=== PATIENT | female | born 1970 | race American Indian/Alaskan Native ===

== ENCOUNTER 2018-05-08 12:23 | Emergency (ER) | payer OTHER ==
[2018-05-08 12:31] VITALS: BP 138/76
--- NOTE | 2018-05-08 13:25 | Emergency Department Report ---
ED Abdominal Pain HPI - General Chief Complaint: Abdominal Pain Stated Complaint: LOWER ABDOMINAL PAIN Time Seen by Provider: 05/08/18 13:08 Source: patient Mode of arrival: Ambulatory Limitations: No Limitations - History of Present Illness Initial Comments: Patient is a 47 years old female with history of uterine fibroids diagnosed one year ago. Patient is being followed by Dr. Jeet Perla. Patient presented to the ER complaining of increasing abdominal pain for the last few month. Pain is mainly suprapubic and cramping in nature. Patient also noticed that she started having more heavy periods. Patient already had a scheduled pelvic ultrasound this coming Saturday and she is following with Dr. Jeet Perla next week. Patient stated that she just wants something to control her pain until she see her doctor. MD Complaint: abdominal pain -: month(s) - Related Data Allergies Allergy/AdvReac Type Severity Reaction Status Date / Time No Known Allergies Allergy Unverified 05/08/18 12:26 ED Review of Systems ROS: Stated complaint: LOWER ABDOMINAL PAIN Other details as noted in HPI Comment: All other systems reviewed and negative Respiratory: denies: cough, shortness of breath, SOB with exertion Cardiovascular: denies: chest pain, palpitations Gastrointestinal: abdominal pain. denies: nausea, vomiting, constipation, hematemesis, hematochezia Genitourinary: abnormal menses. denies: urgency, dysuria, frequency Musculoskeletal: denies: back pain Neurological: denies: headache, weakness, numbness, paresthesias, confusion, abnormal gait ED Past Medical Hx - Past Medical History Previous Medical History?: Yes Hx Psychiatric Treatment: Yes (depression) Additional medical history: uterine fibroids, Cyst on ovary, Vaginal delivery x 1, Genital Herpes - Surgical History Past Surgical History?: Yes Additional Surgical History: Ectopic x 2 - Social History Smoking Status: Never Smoker Substance Use Type: Alcohol, Prescribed ED Physical Exam - General Limitations: No Limitations General appearance: alert, in no apparent distress - Head Head exam: Present: atraumatic, normocephalic, normal inspection - Eye Eye exam: Present: normal appearance - ENT ENT exam: Present: normal exam, normal orophraynx, mucous membranes moist - Respiratory Respiratory exam: Present: normal lung sounds bilaterally. Absent: respiratory distress, wheezes, rales, rhonchi, stridor, accessory muscle use, decreased breath sounds, prolonged expiratory - Cardiovascular Cardiovascular Exam: Present: regular rate, normal rhythm, normal heart sounds - GI/Abdominal GI/Abdominal exam: Present: soft, normal bowel sounds. Absent: distended, tenderness, guarding, rebound, rigid, organomegaly, mass, bruit, pulsatile mass , hernia - Extremities Exam Extremities exam: Present: normal inspection, full ROM, normal capillary refill. Absent: tenderness, pedal edema, joint swelling, calf tenderness - Back Exam Back exam: Present: normal inspection, full ROM. Absent: tenderness, CVA tenderness (R), CVA tenderness (L), muscle spasm, paraspinal tenderness, vertebral tenderness - Neurological Exam Neurological exam: Present: alert, oriented X3, CN II-XII intact, normal gait - Skin Skin exam: Present: warm, intact, normal color ED Course Vital Signs 05/08/18 12:26 Temperature 98.7 F Pulse Rate 108 H Respiratory 20 Rate Blood Pressure 138/76 O2 Sat by Pulse 99 Oximetry Critical care attestation.: If time is entered above; I have spent that time in minutes in the direct care of this critically ill patient, excluding procedure time. ED Disposition Clinical Impression: Abdominal pain, Fibroid Disposition: DC-01 TO HOME OR SELFCARE Is pt being admited?: No Condition: Stable Instructions: Abdominal Pain (ED), Uterine Fibroids (ED) Referrals: PRIMARY CAREMD [Primary Care Provider] - 3-5 Days JEET PERLA MD [Staff Physician] - 3-5 Days
[2018-05-08 13:37] LABS: Bilirubin,Urine NEG (Negative); Blood,Urine NEG (Negative); Color,Urine Yellow (Yellow); Mucus,Urine FEW /HPF; Protein,Urine <15 mg/dL mg/dL (Negative); Urobilinogen,Urine < 2.0 mg/dL (<2.0)
[2018-05-08] MEDS: TORADOL IM ONE (13:43)
== END 2018-05-08 13:43 | disposition home or self-care (01) ==
LOC: ED 12:23
DX: D25.9 Leiomyoma of uterus, unspecified (principal); R10.9 Unspecified abdominal pain; F32.9 Major depressive disorder, single episode, unspecified
CPT/HCPCS: 81001; 96372; 99283; J1885

== ENCOUNTER 2018-06-04 11:04 | Observation (INO) | payer OTHER ==
[2018-06-02 11:00] LABS: Basophils % (Auto) 0.8 % (0.0-1.8); Eosinophils # (Auto) 0.1 K/mm3 (0.0-0.4); Lymphocytes # (Auto) 2.5 K/mm3 (1.2-5.4); Lymphocytes % (Auto) 50.2 % (13.4-35.0); Mean Corpuscular HGB Conc 32 % (30-34); Mean Corpuscular Hemoglobin 26 pg (28-32); Mean Corpuscular Volume 81 fl (79-97); Monocytes # (Auto) 0.4 K/mm3 (0.0-0.8); Monocytes % (Auto) 7.3 % (0.0-7.3); Platelet Count 253 K/mm3 (140-440); Red Blood Count 4.56 M/mm3 (3.65-5.03); Red Cell Distribution Width 14.5 % (13.2-15.2)
--- NOTE | 2018-06-02 11:32 | Anesthesia Consultation ---
Anesthesia Consult and Med Hx Date of service: 06/02/18 (For procedure scheduled 06/04/18) - Airway Anesthetic Teeth Evaluation: Good ROM Head & Neck: Adequate Mental/Hyoid Distance: Adequate Mallampati Class: Class III Intubation Access Assessment: Possibly Difficult - Pulmonary Exam CTA: Yes - Cardiac Exam Cardiac Exam: RRR - Pre-Operative Health Status ASA Pre-Surgery Classification: ASA2 Proposed Anesthetic Plan: General Nerve Block: TAP - Pulmonary Hx Smoking: No Hx Asthma: No Hx Respiratory Symptoms: No SOB: No COPD: No Home Oxygen Therapy: No Hx Pneumonia: No - Cardiovascular System Hx Hypertension: No Hx Coronary Artery Disease: No Hx Heart Attack/AMI: No Hx Angina: No Hx Percutaneous Transluminal Coronary Angioplasty (PTCA): No Hx Cardia Arrhythmia: No Hx Pacemaker: No Hx Internal Defibrillator: No Hx Valvular Heart Disease: No Hx Heart Murmur: No Hx Peripheral Vascular Disease: No - Central Nervous System Hx Neuromuscular Disorder: No Hx Seizures: No CVA: No Hx Psychiatric Problems: Yes (Depression) - Gastrointestinal Hx Ulcer: No Hx Gastroesophageal Reflux Disease: No - Endocrine Hx Renal Disease: No Hx Liver Disease: No Hx Insulin Dependent Diabetes: No Hx Non-Insulin Dependent Diabetes: No Hx Thyroid Disease: No - Other Systems Hx Alcohol Use: Yes (occasional) Hx Substance Use: No Hx Cancer: No Hx Obesity: Yes - Additional Comments Anesthesia Medical History Comments: >4 mets exercise capacity. Takes percocet 5 /325 1x/day for abdominal pain. Discussed preop TAP block. CBC, chem drawn today. T&C to be drawn DOS.
--- NOTE | 2018-06-04 07:43 | History and Physical Report ---
History of Present Illness Date of examination: 06/04/18 Date of admission: 06/04/2018 Chief complaint: symptomatic uterine fibroids History of present illness: 47y/o with symptomatic uterine fibroids. The patient reports heavy painful menses. Pelvic ultrasound demonstrated findings of an enlarged uterus with a dominant myoma measuring 7x7cm. The patient reports worsening in her symptoms and elects to undergo surgical management. Past History Past Medical History: other (uterine fibroids) Past Surgical History: D&C, other (laparoscopy/salpingectomy) Social history: - Obstetrical History : 3 Para: 1 Hx # Term Pregnancies: 0 Number of Pregnancies: 1 Spontaneous Abortions: 2 Induced : 0 Number of Living Children: 1 Medications and Allergies Allergies Allergy/AdvReac Type Severity Reaction Status Date / Time No Known Allergies Allergy Unverified 05/30/18 08:21 Home Medications Medication Instructions Recorded Confirmed Last Taken Type HYDROcodone/APAP 5-325 [[place] 1 each PO Q6HR PRN #14 tablet 05/08/18 05/30/18 Unknown Rx 5/325] Acyclovir [Zovirax] 400 mg PO DAILY 05/30/18 05/30/18 Unknown History traZODone [Desyrel] 100 mg PO QHS 05/30/18 05/30/18 Unknown History Active Meds: Active Medications Bupivacaine HCl (Marcaine 0.5%) 20 ml INFILTRATI PREOP NR Stop: 06/04/18 23:59 Celecoxib (Celebrex) 200 mg PO PREOP KITA Stop: 06/04/18 23:00 Fentanyl (Sublimaze) 100 mcg IV ONCE KITA Stop: 06/04/18 23:32 Gabapentin (Neurontin) 300 mg PO PREOP NR Stop: 06/04/18 23:59 Lactated Ringer's (Lactated Ringers) 1,000 mls @ 75 mls/hr IV DIRECT KITA Lidocaine (Xylocaine 1% 20 Ml) 10 ml INFILTRATI PREOP NR Stop: 06/04/18 23:44 Midazolam HCl (Versed) 2 mg IV PREOP NR Stop: 06/04/18 23:59 Sodium Chloride (Nacl P/F Vial (10 Ml)) 1 ml INFILTRATI PREOP NR Stop: 06/04/18 23:59 Review of Systems All systems: negative Genitourinary: vaginal bleeding, pelvic pain - Vital Signs Vital signs: Vital Signs Temp Pulse Resp BP 98.8 F 88 18 130/88 06/02/18 10:30 06/02/18 10:30 06/02/18 10:30 06/02/18 10:30 Temp Pulse Resp BP Pulse Ox 98.8 F 88 18 130/88 06/02/18 10:30 06/02/18 10:30 06/02/18 10:30 06/02/18 10:30 - Physical Exam Breasts: Positive: deferred Cardiovascular: Regular rate Lungs: Positive: Clear to auscultation Abdomen: Positive: normal appearance Results Result Diagrams: 06/02/18 10:40 All other labs normal. Assessment and Plan - Patient Problems (1) Leiomyoma Status: Acute Plan to address problem: patient is scheduled for a robotic hysterectomy and bilateral salpingectomy (2) Dysmenorrhea Status: Acute (3) Menorrhagia Status: Acute
[~2018-06-04 11:04] MED LIST: ANCEF/STERILE WATER 2 GM/20 ML 2 GM/20 ML SYRINGE IV SCH; LACTATED RINGERS 1,000 ML IV SCH; MARCAINE 0.5% INFILTRATI NR; NACL P/F VIAL (10 ML) INFILTRATI NR; NEURONTIN PO NR; SUBLIMAZE IV SCH; VERSED IV NR; XYLOCAINE 1% 20 mL INFILTRATI NR
[2018-06-04] MEDS ORDERED: MARCAINE 0.5% 30 ML INFILTRATI ONE ×2 (12:37)
[2018-06-04] MEDS ORDERED: DECADRON ONE ×2 (12:37→12:51)
[2018-06-04] MEDS ORDERED: ROBINUL ONE (12:51)
[2018-06-04] MEDS ORDERED: ZOFRAN ONE (12:51)
[2018-06-04] MEDS ORDERED: DILAUDID ONE (12:51)
[2018-06-04] MEDS ORDERED: XYLOCAINE MPF 2% ONE (12:51)
[2018-06-04] MEDS ORDERED: BLOXIVERZ ONE (12:51)
[2018-06-04] MEDS ORDERED: THROMBIN (BOVINE) TP ONE ×2 (12:51→13:38)
[2018-06-04] MEDS ORDERED: ZEMURON IV ONE (12:51)
[2018-06-04] MEDS ORDERED: NEOSPORIN GU IR ONE ×2 (12:51→13:38)
[2018-06-04] MEDS ORDERED: GELFOAM POWDER 1GM MM ONE ×2 (12:51→13:38)
[2018-06-04] MEDS ORDERED: DIPRIVAN 10 MG/ML IV ONE (12:52)
[2018-06-04] MEDS ORDERED: NACL 0.9% IR ONE ×2 (13:38)
[2018-06-04] MEDS ORDERED: NEO SYNEPHRINE/NS Syringe(OR USE) IV ONE (14:38)
[2018-06-04] MEDS ORDERED: NARCAN 0.4 MG/1 ML IV PRN (15:08)
--- NOTE | 2018-06-04 15:08 | Operative Report ---
Operative Report Operative Report: Date of surgery: 06/04/2018 Preoperative diagnoses: Symptomatic uterine fibroids; dysmenorrhea; menorrhagia Postoperative diagnoses: Same as above Procedure: Robotic hysterectomy; bilateral salpingectomy; right ovarian cystectomy; lysis of adhesions Surgeon: Yvonne Castellanos M.D. Canvas Cutter Hand: Laura Coles Anesthesia: Gen. endotracheal anesthesia Estimated blood loss: 50 mL Pathology: Cervix, uterus, bilateral tubes, uterine fibroids Indication: 47-year-old with a history of symptomatic uterine fibroids. The patient has a history of prior ectopic . The patient reports worsening in her menstrual pain and vaginal bleeding. Procedure: The patient was taken to the operating room and given general endotracheal anesthesia without complication. She is prepped and draped in a normal sterile fashion. A bivalve speculum was placed in the patient's vagina and a single- tooth tenaculum placed on the anterior lip of the cervix. The uterus was sounded with the uterine sound. A [place] uterine manipulator was placed in the bivalve speculum was then removed. Attention was then turned to the patient's abdomen where a millimeter supra umbilical skin incision was then made. A Veress needle was placed and peritoneal entry was verified water-filled syringe. Insufflation of the peritoneal cavity was performed with CO2 gas. The 12 mm trocar was then placed under direct visualization. An additional 8 mm trocar was placed on the patient's left and right lateral side just opposite of the supraumbilical trocar. An additional 5 mm right lateral trocar was then placed as the accessory port. The patient was then placed in steep Trendelenburg. The da Johnson robot was then engaged. A fenestrated forcep was placed in arm 2 and a vessel sealer was placed in arm 1. The surgeon then transferred to the surgical console. General survey of the abdomen and pelvis reveal evidence of omental adhesions to the anterior abdominal wall along with small bowel adhesion. The monopolar scissors were used to transect the adhesions to improve visualization into the pelvis. The uterus was noted to be enlarged with multiple uterine fibroids. There was a 2 cm right ovarian cyst. It was noted that the patient had a prior partial salpingectomy. The mesosalpinx was then isolated on the right. The vessel sealer was used to coagulate the mesosalpinx which was then transected. The tube was transected from the ovary. The tubo-ovarian ligament was then coagulated and transected. The round ligament was then coagulated and transected also. The vesicouterine peritoneum was then entered from the patient's right side. The uterine vessels were then coagulated with the vessel sealer. The vessels were then transected . Attention was then turned to the patient's left side where the tubo-ovarian ligament and mesosalpinx were again isolated coagulated and transected. The vesical peritoneum was then entered from the left and joined in the midline. Peritoneum was reflected off of the lower uterine segment. Uterine vessels were then coagulated and then transected. The blood supply to the uterus was adequately contained. A myomectomy was performed with the monopolar scissors in order to decompress the size of the uterus. An incision was made with the monopolar scissors over the serosa and the surrounding connective tissue was transected to remove the fibroids which were placed in the posterior cul-de- sac. The V care ring was visualized. Posterior colpotomy was created with the monopolar scissors. The incision was continued circumferentially until anterior colpotomy was made. The cervix and uterus were amputated from the vaginal cuff. The uterus was then removed along with the fibroids and tubes bilaterally through the vagina and a warm laparotomy sponge was placed and maintain the pneumoperitoneum. The monopolar scissors were used to create a cystotomy in the right ovarian cysts with evacuation of clear fluid. The vaginal cuff was then closed in a running fashion with V lock suture. Irrigation of the pelvis was performed. Gelfoam with thrombin was applied to the incision. The supraumbilical 12 mm trocar site was closed with the Leno Davalos device. The skin was then reapproximated with 4-0 Monocryl. The tissue was sent to pathology which included the cervix and uterus. The patient was then successfully extubated. She was then taken to the recovery room in stable condition. All sponge laps and needle counts were correct x2.
[2018-06-04] MEDS ORDERED: MILK OF MAGNESIA PO PRN (15:09)
[2018-06-04] MEDS ORDERED: ZOFRAN IV PRN (15:09)
[2018-06-04] MEDS ORDERED: TYLENOL PO PRN (15:09)
[2018-06-04] MEDS ORDERED: PERCOCET 5/325 PO PRN (15:09)
[2018-06-04] MEDS ORDERED: AMBIEN PO PRN (15:09)
[2018-06-04] MEDS ORDERED: MOTRIN PO PRN (15:09)
[2018-06-04] MEDS ORDERED: TORADOL ONE (15:40)
[2018-06-04] MEDS: DILAUDID IV PRN ×2 (15:45→15:55)
[2018-06-04] MEDS: TORADOL IV SCH ×2 (15:45→21:02)
[2018-06-04] MEDS ORDERED: LACTATED RINGERS 1,000 ML IV SCH (16:00)
[2018-06-04] MEDS ORDERED: MORPHINE PCA 30MG/30ML IV SCH (16:00)
[2018-06-04] MEDS ORDERED: D5LR 1,000 ML IV ONE (16:25)
[2018-06-04] MEDS: D5LR 1,000 ML IV SCH ×2 (16:59→23:06)
--- NOTE | 2018-06-04 18:29 | Post Anesthesia Evaluation ---
- Post Anesthesia Evaluation Patient Participated: Yes Airway Patent: Yes Stable Respiratory Function: Yes Nausea/Vomiting: No Temp > 96.8F: Yes Pain Manageable: Yes Adequeate Hydration: Yes Anesthesia Complications: Yes Patient on Ventilator: No
[2018-06-05 03:41] LABS: Hematocrit 36.4 % (30.3-42.9); Hemoglobin 11.7 gm/dl (10.1-14.3)
[2018-06-05] MEDS: TORADOL IV SCH ×2 (03:48→09:27)
[2018-06-05] MEDS: D5LR 1,000 ML IV SCH (06:36)
--- NOTE | 2018-06-05 08:45 | Progress Note ---
Assessment and Plan - Patient Problems (1) Leiomyoma Current Visit: No Status: Acute Plan to address problem: patient doing well discharge once she voids (2) Dysmenorrhea Current Visit: No Status: Acute (3) Menorrhagia Current Visit: No Status: Acute Subjective - Subjective Date of service: 06/05/18 Interval history: Patient having some lower abdominal cramping. Denies any vomiting. Patient has not voided yet Patient reports: appetite normal, pain well controlled Objective - Vital Signs Latest vital signs: Vital Signs Temp Pulse Resp BP BP Pulse Ox 06/05/18 07:31 98.4 F 82 20 114/68 95 06/05/18 04:13 98.4 F 74 18 129/73 06/04/18 23:30 98.2 F 80 18 114/67 06/04/18 19:47 97 F L 74 18 126/71 06/04/18 17:18 97.3 F L 70 16 133/75 97 06/04/18 16:30 78 16 126/75 94 06/04/18 16:15 79 17 126/80 94 06/04/18 16:00 65 18 114/60 100 06/04/18 15:40 70 18 119/70 100 06/04/18 15:35 65 17 115/70 100 06/04/18 15:30 69 18 123/60 100 06/04/18 15:25 70 17 113/61 100 06/04/18 15:18 97.2 F L 86 13 111/45 100 06/04/18 12:55 87 16 128/53 100 06/04/18 12:50 84 16 121/57 100 06/04/18 12:45 87 16 118/67 100 06/04/18 12:40 75 16 114/67 100 06/04/18 12:35 88 18 123/63 100 06/04/18 10:25 98.9 F 80 22 110/79 99 Intake and Output 06/04/18 06/05/18 06/05/18 22:59 06:59 14:59 Intake Total 400 2542.083 Output Total 190 2300 Balance 210 242.083 Intake: IV 400 1702.083 D5lr 1,000 ml @ 125 mls/ 1702.083 hr IV DIRECT KITA Rx#: [id number] Intake, Free Water 840 Output: Urine 190 2300 Void 2300 Other: Total, Output Amount 1400 Voiding Method Indwelling Catheter - Exam Abdomen: Present: normal appearance, soft Incision: Present: normal, dry
--- NOTE | 2018-06-05 08:47 | Discharge Summary ---
Providers - Providers Date of Admission: 06/04/18 15:09 Date of discharge: 06/05/18 Attending physician: ISMAEL DUBOIS Primary care physician: LESTER MACDONALD Hospitalization Reason for admission: other (symptomatic uterine fibroids) Procedure: other (robotic hysterectomy ) Discharge diagnosis: other (symptomatic uterine fibroids) Hospital course: Patient underwent a robotic hysterectomy. See operative note for details. Postoperative course unremarkable Condition at discharge: Good Disposition: DC-01 TO HOME OR SELFCARE - Discharge Diagnoses (1) Leiomyoma Status: Acute (2) Dysmenorrhea Status: Acute (3) Menorrhagia Status: Acute Plan - Discharge Medications Prescriptions: Docusate Sodium [Colace] 100 mg PO BID PRN #60 capsule PRN Reason: Constipation Ibuprofen [Motrin] 800 mg PO Q8HR PRN #60 tablet PRN Reason: Pain , Severe (7-10) Oxycodone HCl/Acetaminophen [Percocet 7.5/325 mg] 1 each PO Q6HR PRN #45 tablet PRN Reason: Pain - Provider Discharge Summary Activity: no sex for 6 weeks, no heavy lifting 4 weeks, no strenuous exercise Diet: routine Instructions: routine Additional instructions: [] Smoking cessation referral if applicable(refer to patient education folder for contact #) [] Refer to [facility] Booklet Call your doctor immediately for: * Fever > 100.5 * Heavy vaginal bleeding ( >1 pad per hour) * Severe persistent headache * Shortness of breath * Reddened, hot, painful area to leg or breast * Drainage or odor from incision. * Keep incision clean and dry at all times and follow doctor's instructions regarding bathing/showering Schedule followup with Dr Yang in 3-4 weeks - Follow up plan
[2018-06-05] MEDS ORDERED: PNEUMOVAX 23 IM ONE (12:00)
[2018-06-05 12:29] VITALS: BP 92/41
== END 2018-06-05 13:15 | disposition home or self-care (01) ==
LOC: OR 11:04 → OB 15:09
PROVIDERS: ADMIT Obstetrics & Gynecology; ATTEND Obstetrics & Gynecology
DX: D25.9 Leiomyoma of uterus, unspecified (principal); N94.6 Dysmenorrhea, unspecified; N92.0 Excessive and frequent menstruation with regular cycle; F32.9 Major depressive disorder, single episode, unspecified; E66.9 Obesity, unspecified; Z68.37 Body mass index [BMI] 37.0-37.9, adult; Z72.89 Other problems related to lifestyle
CPT/HCPCS: 36415; 58554; 58662; 64450; 84703; 85014; 85018; 85025; 86850; 86900; 86901; 88307; 96374; 96375; 96376; A4217; A4649; G0378; J0690; J1100; J1170; J1885; J2250; J2270; J2370; J2405; J2704; J2710; J3010; J7120; J7121; S2900; 90732

== ENCOUNTER 2018-06-10 16:15 | Inpatient (IN) | payer OTHER ==
--- NOTE | 2018-06-10 16:18 | History and Physical Report ---
History of Present Illness Date of examination: 06/10/18 Date of admission: 06/10/18 16:15 Chief complaint: abdominal pain History of present illness: 47y/o s/p robotic hysterectomy . The patient had a routine postoperative course. She represented to the office with the complaint of a low grade fever 2 days ago. She reports having a small bowel movement yesterday. The patient has experienced worsening abdominal pain today. She denies any nausea. Past History Past Medical History: no pertinent history Past Surgical History: D&C, other (robotic hysterectomy) Social history: - Obstetrical History : 3 Para: 1 Hx # Term Pregnancies: 0 Number of Pregnancies: 1 Spontaneous Abortions: 2 Induced : 0 Number of Living Children: 1 Medications and Allergies Allergies Allergy/AdvReac Type Severity Reaction Status Date / Time No Known Allergies Allergy Unverified 05/30/18 08:21 Home Medications Medication Instructions Recorded Confirmed Last Taken Type HYDROcodone/APAP 5-325 [[place] 1 each PO Q6HR PRN #14 tablet 05/08/18 05/30/18 Unknown Rx 5/325] Acyclovir [Zovirax] 400 mg PO DAILY 05/30/18 05/30/18 06/03/18 History traZODone [Desyrel] 100 mg PO QHS 05/30/18 05/30/18 06/03/18 History Docusate Sodium [Colace] 100 mg PO BID PRN #60 capsule 06/05/18 Unknown Rx Ibuprofen [Motrin] 800 mg PO Q8HR PRN #60 tablet 06/05/18 Unknown Rx Oxycodone HCl/Acetaminophen 1 each PO Q6HR PRN #45 tablet 06/05/18 Unknown Rx [Percocet 7.5/325 mg] Review of Systems All systems: negative Constitutional: fatigue Gastrointestinal: abdominal pain, loss of appetite, excessive gas - Physical Exam Breasts: Positive: deferred Cardiovascular: Regular rate Abdomen: Positive: tenderness, other (distension and hypoactive bowel sounds) Results Result Diagrams: 06/11/18 03:32 06/10/18 18:45 All other labs normal. Assessment and Plan - Patient Problems (1) Abdominal pain Current Visit: Yes Status: Acute Plan to address problem: patient admitted for imaging and pain management will initiate IV antibiotics
[2018-06-10] MEDS ORDERED: NARCAN 0.4 MG/1 ML IV PRN (16:39)
[2018-06-10] MEDS ORDERED: ZOFRAN IV PRN ×2 (16:39)
[2018-06-10] MEDS: TORADOL IV SCH ×2 (17:55→23:50)
[2018-06-10] MEDS: TYLENOL PO PRN (18:10)
[2018-06-10] MEDS: D5LR 1,000 ML IV SCH (18:17)
[2018-06-10] MEDS: MORPHINE PCA 30MG/30ML IV SCH ×2 (19:29→19:30)
[2018-06-10 20:18] LABS: Albumin 3.2 g/dL (3.9-5); Calcium 8.7 mg/dL (8.4-10.2)
--- NOTE | 2018-06-10 21:55 | Cat Scan Report ---
FINAL REPORT PROCEDURE: CT ABDOMEN PELVIS WO/W CON TECHNIQUE: Computerized axial tomography of the abdomen and pelvis was performed without contrast followed by computerized axial tomography of the abdomen and pelvis after the IV injection of iodinated nonionic contrast. HISTORY: abdominal pain COMPARISON: No prior studies are available for comparison. FINDINGS: Liver, spleen, pancreas and adrenal glands are within normal limits. An irregular fluid collection is noted in the cul-de-sac measuring 6.5 x 6.6 centimeters which is extending superiorly into bilateral lower quadrants along the retroperitoneal plane containing air-fluid levels. There are also loculated fluid collections along bilateral paracolic gutters. On the right side it is extending into right subhepatic region. Bilateral kidneys demonstrate normal enhancement. 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 The ureters are mildly dilated on the left most likely secondary to extrinsic compression by the fluid collection. A simple cyst measuring 1.2 centimeters is noted in the right kidney. An air-fluid level is noted in the urinary bladder most likely secondary to any recent intervention or cystitis. Gallbladder is unremarkable. Small bowel loops are within normal limits. Small pockets of free air are noted in the subhepatic and left upper quadrant regions. Appendix is partially visualized and appears unremarkable.. IMPRESSION: Multiple fluid collections in the cul-de-sac, bilateral lower quadrants, bilateral paracolic gutters and right sub patent region. Mild degree free air. Findings are suspicious for etiologies such as diverticulitis with perforation. Clinical correlation is recommended
[2018-06-10] MEDS: MYLICON PO PRN (22:00)
[2018-06-10] MEDS: UNASYN/NS 3 GM/100 ML 3 GM/100 ML BAG IV SCH (23:08)
[2018-06-10 23:45] LABS: Bacteria,Urine 1+ /HPF (Negative); Bilirubin,Urine NEG (Negative); Blood,Urine NEG (Negative); Color,Urine Amber (Yellow); Mucus,Urine 2+ /HPF
[2018-06-11] MEDS: TORADOL IV SCH ×2 (06:05→12:30)
[2018-06-11] MEDS: MYLICON PO PRN (06:05)
[2018-06-11] MEDS: UNASYN/NS 3 GM/100 ML 3 GM/100 ML BAG IV SCH ×3 (06:05→18:52)
[2018-06-11 06:38] LABS: Basophils % (Auto) 0.1 % (0.0-1.8); Eosinophils # (Auto) 0.1 K/mm3 (0.0-0.4); Eosinophils % (Auto) 0.4 % (0.0-4.3); Hematocrit 32.7 % (30.3-42.9); Hemoglobin 10.8 gm/dl (10.1-14.3); Lymphocytes # (Auto) 1.2 K/mm3 (1.2-5.4); Lymphocytes % (Auto) 8.3 % (13.4-35.0); Mean Corpuscular HGB Conc 33 % (30-34); Mean Corpuscular Hemoglobin 26 pg (28-32); Mean Corpuscular Volume 80 fl (79-97); Monocytes # (Auto) 0.7 K/mm3 (0.0-0.8); Monocytes % (Auto) 4.6 % (0.0-7.3); Platelet Count 242 K/mm3 (140-440); Red Blood Count 4.09 M/mm3 (3.65-5.03); Red Cell Distribution Width 14.7 % (13.2-15.2)
--- NOTE | 2018-06-11 09:12 | Progress Note ---
Assessment and Plan - Patient Problems (1) Abdominal pain Current Visit: Yes Status: Acute Plan to address problem: continue supportive measures suspect postoperative ileus consult IR for drainage Subjective - Subjective Date of service: 06/11/18 Interval history: The patient reports slight improvement in abdominal pain. She denies and vomiting today. Has not had flatus today. CT scan indicates 6cm fluid collection in cul-de-sac. Patient receiving IV unasyn. Will continue NPO status until flatus resumes. Will have interventional radiology review CT results for possible percutaneous drainage of collection. Patient reports: other (pain is better controlled), no appetite normal, no flatus Objective - Vital Signs Latest vital signs: Vital Signs Temp Pulse Pulse Resp BP Pulse Ox 06/11/18 04:15 99.0 F 105 H 20 91/54 06/11/18 02:00 18 06/11/18 00:00 98.4 F 103 H 20 100/60 96 06/10/18 22:00 18 06/10/18 20:15 98.4 F 100 H 20 126/63 98 06/10/18 20:00 18 06/10/18 18:35 100.0 F H 108 H 108 H 20 115/47 98 Intake and Output 06/10/18 06/11/18 06/11/18 22:59 06:59 14:59 Intake Total 100 Output Total 450 300 Balance -450 -200 Intake: IV 100 UNASYN/NS 3 GM/100 ML 3 100 gm In 100 ml @ 200 mls/hr IV Q6HR [facility] Rx#: [id number] Output: Urine 450 300 Void 450 300 Other: Total, Output Amount 450 300 Voiding Method Toilet # Voids Void 1 1 Weight 79.832 kg 81 kg - Exam Abdomen: Present: distention, abnormal bowel sounds Incision: Present: normal, dry - Labs Labs: Abnormal lab results 06/10/18 06/10/18 06/11/18 Range/Units 18:45 Unknown 03:32 WBC 14.3 H (4.5-11.0) K/mm3 MCH 26 L (28-32) pg Lymph % (Auto) 8.3 L (13.4-35.0) % Seg Neutrophils % 86.6 H (40.0-70.0) % Seg Neutrophils # 12.4 H (1.8-7.7) K/mm3 Chloride 97.3 L (98-107) mmol/L Creatinine 1.4 H (0.7-1.2) mg/dL Glucose 149 H (65-100) mg/dL Albumin 3.2 L (3.9-5) g/dL Ur Specific [place] 1.051 H (1.003-1.030) Urine WBC (Auto) 16.0 H (0.0-6.0) /HPF
[2018-06-11] MEDS ORDERED: VERSED IV NR ×2 (10:00)
[2018-06-11] MEDS ORDERED: SUBLIMAZE IV NR ×2 (10:00)
[2018-06-11] MEDS ORDERED: VERSED IV ONE (10:17)
[2018-06-11] MEDS ORDERED: SUBLIMAZE ONE (10:18)
[2018-06-11] MEDS ORDERED: XYLOCAINE 2% INFILTRATI ONE (10:39)
[2018-06-11] MEDS: MORPHINE PCA 30MG/30ML IV SCH (12:53)
--- NOTE | 2018-06-11 13:43 | Cat Scan Report ---
Exam: CT-guided placement of drainage catheter Clinical indication: Patient with history of hysterectomy who presents with interabdominal fluid collections and abdominal pain Date: 06/11/2018 Procedure: Following an examination of the risks, benefits and alternatives; written informed consent was obtained. Patient was brought to the CT suite and placed in supine position on the gantry. Initial rural sociologist images of the abdomen was performed and an appropriate access site chosen to largest fluid collection in the pelvis just posterior to the bladder. The patient's left lower quadrant was prepped and draped in usual sterile fashion. 1% lidocaine was used for anesthesia. Using intermittent CT guidance, a 15 cm 18-gauge trocar needle was advanced into the fluid. There was prompt return of purulent serous fluid. A 0.035 guidewire was then advanced through the needle and the needle removed. Following serial dilation over the guidewire under fluoroscopy, an 8 Macedonian pigtail drainage catheter was placed over the guidewire under fluoroscopy and a pigtail advanced into the central aspect of the fluid collection. Guidewire was removed. A total of 150 mL's of serous purulent fluid was aspirated. Samples sent for laboratory analysis. Post aspiration imaging demonstrated collapse of the fluid collection. The catheter was secured to the skin surface using 0 silk suture and a StatLock device. The catheter was then placed to CONOR bulb drainage. A sterile dressing was then applied. The patient tolerated the procedure well. There were no immediate post procedure complications. Conscious sedation was performed of the guidance of radiologic nursing. Continuous cardiopulmonary monitoring was utilized. Impression: 1) CT-guided placement of 8 Macedonian drainage catheter into a pelvic fluid collection with 150 mL's of serous purulent fluid aspirated. Samples were sent for laboratory analysis.
[2018-06-11] MEDS ORDERED: GARAMYCIN 400 MG in NACL 0.9% 100 ML IV SCH (18:45)
[2018-06-11] MEDS ORDERED: GARAMYCIN 240 MG in NACL 0.9% 100 ML IV SCH (18:45)
--- NOTE | 2018-06-11 18:55 | Progress Note ---
Assessment and Plan - Patient Problems (1) Abdominal pain Current Visit: Yes Status: Acute (2) Abscess Current Visit: Yes Status: Acute Plan to address problem: will add clindamycin and gentamicin to antibiotic regimen blood cultures being sent suspect possible sepsis continue aggressive supportive care diet advanced to clears (3) Tachycardia Current Visit: Yes Status: Acute Subjective - Subjective Date of service: 06/11/18 Interval history: The patient underwent percutaneous drainage of 6.6cm fluid collection in the [place]. Speaking with the radiologist who performed the procedure, the fluid was purulent with a foul odor. The patient is now experiencing tachycardia. She reports +flatus and continues to void urine voluntarily. The patient remains afebrile. Cultures of the fluid are pending. Patient reports: voiding normally, flatus Objective - Vital Signs Latest vital signs: Vital Signs Temp Pulse Pulse Resp Resp BP BP 06/11/18 17:45 99.5 F 132 H 18 108/65 06/11/18 13:43 98.5 F 132 H 18 95/59 06/11/18 11:16 114 H 28 H 105/45 06/11/18 10:57 112 H 28 H 101/50 06/11/18 10:53 113 H 36 H 93/54 06/11/18 10:48 114 H 29 H 99/46 06/11/18 10:25 118 H 20 101/56 06/11/18 08:56 97.7 F 105 H 18 83/47 06/11/18 04:15 99.0 F 105 H 20 91/54 06/11/18 02:00 18 06/11/18 00:00 98.4 F 103 H 20 100/60 06/10/18 22:00 18 06/10/18 20:15 98.4 F 100 H 20 126/63 06/10/18 20:00 18 Pulse Ox Pulse Ox 06/11/18 17:45 06/11/18 13:43 06/11/18 11:16 99 06/11/18 10:57 99 06/11/18 10:53 97 06/11/18 10:48 99 06/11/18 10:25 95 06/11/18 08:56 06/11/18 04:15 06/11/18 02:00 06/11/18 00:00 96 06/10/18 22:00 06/10/18 20:15 98 06/10/18 20:00 Intake and Output 06/11/18 06/11/18 06/11/18 06:59 14:59 22:59 Intake Total 200 360 320 Output Total 300 300 Balance -100 360 20 Intake: IV 200 UNASYN/NS 3 GM/100 ML 3 200 gm In 100 ml @ 200 mls/hr IV Q6HR [facility] Rx#: [id number] Oral 360 320 Output: Urine 300 300 Void 300 300 Other: Total, Intake Amount 360 320 Total, Output Amount 300 300 # Voids Void 1 1 1 Weight 81 kg - Labs Labs: Abnormal lab results 06/10/18 06/10/18 06/11/18 Range/Units 18:45 Unknown 03:32 WBC 14.3 H (4.5-11.0) K/mm3 MCH 26 L (28-32) pg Lymph % (Auto) 8.3 L (13.4-35.0) % Seg Neutrophils % 86.6 H (40.0-70.0) % Seg Neutrophils # 12.4 H (1.8-7.7) K/mm3 Chloride 97.3 L (98-107) mmol/L Creatinine 1.4 H (0.7-1.2) mg/dL Glucose 149 H (65-100) mg/dL Albumin 3.2 L (3.9-5) g/dL Ur Specific Mathews 1.051 H (1.003-1.030) Urine WBC (Auto) 16.0 H (0.0-6.0) /HPF
[2018-06-11] MEDS ORDERED: GARAMYCIN 300 MG in NACL 0.9% 100 ML IV SCH (21:00)
[2018-06-11] MEDS: TYLENOL PO PRN (22:00)
[2018-06-11] MEDS: CLEOCIN 600 MG/50 mL 600 MG/50 ML BAG IV SCH (22:08)
[2018-06-12] MEDS: UNASYN/NS 3 GM/100 ML 3 GM/100 ML BAG IV SCH ×6 (00:21→23:45)
[2018-06-12] MEDS: D5LR 1,000 ML IV SCH ×3 (00:28→23:54)
[2018-06-12] MEDS: CLEOCIN 600 MG/50 mL 600 MG/50 ML BAG IV SCH ×3 (05:56→22:53)
[2018-06-12 06:17] LABS: Basophils % (Auto) 0.1 % (0.0-1.8); Eosinophils # (Auto) 0.1 K/mm3 (0.0-0.4); Eosinophils % (Auto) 0.3 % (0.0-4.3); Hemoglobin 10.4 gm/dl (10.1-14.3); Lymphocytes # (Auto) 1.4 K/mm3 (1.2-5.4); Lymphocytes % (Auto) 8.7 % (13.4-35.0); Mean Corpuscular HGB Conc 33 % (30-34); Mean Corpuscular Hemoglobin 26 pg (28-32); Mean Corpuscular Volume 81 fl (79-97); Monocytes # (Auto) 0.6 K/mm3 (0.0-0.8); Monocytes % (Auto) 3.9 % (0.0-7.3); Platelet Count 241 K/mm3 (140-440); Red Blood Count 3.97 M/mm3 (3.65-5.03); Red Cell Distribution Width 14.4 % (13.2-15.2)
[2018-06-12 06:34] LABS: BUN/Creatinine Ratio 13; Blood Urea Nitrogen 12 mg/dL (7-17); Calcium 8.2 mg/dL (8.4-10.2); Hemolysis Index 15
[2018-06-12] MEDS: MORPHINE PCA 30MG/30ML IV SCH (07:25)
--- NOTE | 2018-06-12 08:44 | Progress Note ---
Assessment and Plan - Patient Problems (1) Abdominal pain Current Visit: Yes Status: Acute Plan to address problem: continue current care with antibiotics improvement in creatinine therefore gentamicin dosing changed to q24hr dosing encourage ambulation (2) Abscess Current Visit: Yes Status: Acute (3) Tachycardia Current Visit: Yes Status: Acute Subjective - Subjective Date of service: 06/12/18 Interval history: Patient states she is not feeling better today. Had some temp spikes yesterday. Tachycardia is improving. Slight increase in leukocytosis. She denies any nausea or vomiting. Patient made aware that pelvic fluid drained was infected. Antibiotic regimen extended. Cultures pending. +flatus. Diet advanced to regular Patient reports: voiding normally, flatus, no appetite normal, no pain well controlled Objective - Vital Signs Latest vital signs: Vital Signs Temp Pulse Pulse Resp Resp BP BP 06/12/18 04:20 99.2 F 120 H 18 98/55 06/12/18 00:00 98.8 F 128 H 18 108/48 06/11/18 22:00 18 06/11/18 20:00 101.9 F H 133 H 18 108/65 06/11/18 17:45 99.5 F 132 H 18 108/65 06/11/18 13:43 98.5 F 132 H 18 95/59 06/11/18 11:16 114 H 28 H 105/45 06/11/18 10:57 112 H 28 H 101/50 06/11/18 10:53 113 H 36 H 93/54 06/11/18 10:48 114 H 29 H 99/46 06/11/18 10:25 118 H 20 101/56 06/11/18 08:56 97.7 F 105 H 18 83/47 Pulse Ox 06/12/18 04:20 06/12/18 00:00 06/11/18 22:00 06/11/18 20:00 06/11/18 17:45 06/11/18 13:43 06/11/18 11:16 99 06/11/18 10:57 99 06/11/18 10:53 97 06/11/18 10:48 99 06/11/18 10:25 95 06/11/18 08:56 Intake and Output 06/11/18 06/12/18 06/12/18 22:59 06:59 14:59 Intake Total 470 340 Output Total 300 244 Balance 170 96 Intake: IV 150 100 CLEOCIN 600 MG/50 mL 600 50 mg In 50 ml @ 100 mls/hr IV Q8HR [facility] Rx#:[id number] UNASYN/NS 3 GM/100 ML 3 100 100 gm In 100 ml @ 200 mls/hr IV Q6HR [facility] Rx#: [id number] Oral 320 240 Output: Drainage 44 Abdomen 44 Urine 300 200 Void 300 200 Other: Total, Intake Amount 320 240 Total, Output Amount 300 22 # Voids Void 1 - Exam Abdomen: Present: soft, distention (mild), normal bowel sounds - Labs Labs: Abnormal lab results 06/12/18 06/12/18 Range/Units 05:19 05:19 WBC 16.1 H (4.5-11.0) K/mm3 MCH 26 L (28-32) pg Lymph % (Auto) 8.7 L (13.4-35.0) % Seg Neutrophils % 87.0 H (40.0-70.0) % Seg Neutrophils # 14.0 H (1.8-7.7) K/mm3 Calcium 8.2 L (8.4-10.2) mg/dL
[2018-06-12] MEDS: TYLENOL PO PRN (11:05)
[2018-06-12] MEDS: TORADOL IV SCH ×6 (11:48→23:02)
[2018-06-12] MEDS ORDERED: GARAMYCIN 300 MG in NACL 0.9% 100 ML IV SCH (22:00)
[2018-06-12] MEDS: AMBIEN PO PRN (23:11)
[2018-06-13] MEDS: MYLICON PO PRN ×2 (00:46→20:58)
[2018-06-13] MEDS: CLEOCIN 600 MG/50 mL 600 MG/50 ML BAG IV SCH ×3 (05:32→22:38)
[2018-06-13] MEDS: UNASYN/NS 3 GM/100 ML 3 GM/100 ML BAG IV SCH ×2 (05:32→11:55)
[2018-06-13] MEDS: TORADOL IV SCH ×4 (05:33→22:37)
[2018-06-13] MEDS: TYLENOL PO PRN (05:51)
[2018-06-13 08:50] LABS: Hematocrit 30.6 % (30.3-42.9); Hemoglobin 10.1 gm/dl (10.1-14.3); Mean Corpuscular HGB Conc 33 % (30-34); Mean Corpuscular Hemoglobin 26 pg (28-32); Mean Corpuscular Volume 79 fl (79-97); Platelet Count 245 K/mm3 (140-440); Red Blood Count 3.85 M/mm3 (3.65-5.03); Red Cell Distribution Width 14.6 % (13.2-15.2)
--- NOTE | 2018-06-13 13:20 | Progress Note ---
Assessment and Plan A/P continue abx cultures from surgical grew out E.coli Subjective - Subjective Date of service: 06/13/18 Patient reports: appetite normal, voiding normally, pain well controlled Objective - Vital Signs Latest vital signs: Vital Signs Temp Pulse Resp BP BP Pulse Ox 06/13/18 07:31 98.8 F 117 H 20 109/67 95 06/13/18 04:10 100.5 F H 131 H 18 109/70 06/13/18 00:00 99.0 F 127 H 18 95/57 06/12/18 20:05 99.3 F 120 H 18 100/63 06/12/18 15:56 97.9 F 18 86/55 06/12/18 15:55 123 H 94 Intake and Output 06/12/18 06/13/18 06/13/18 23:59 07:59 15:59 Intake Total 1667.5 1597.5 360 Output Total 420 Balance 1247.5 1597.5 360 Intake: IV 1307.5 1357.5 CLEOCIN 600 MG/50 mL 600 100 50 mg In 50 ml @ 100 mls/hr IV Q8HR [facility] Rx#:[id number] D5lr 1,000 ml @ 150 mls/ 1000 1000 hr IV DIRECT [facility] Rx#: [id number] Garamycin 300 mg In NaCl 107.5 0.9% 100 ml @ 107.5 mls/ hr IV Q24HR@2200 [facility] Rx#: [id number] Garamycin 300 mg In NaCl 107.5 0.9% 100 ml @ 107.5 mls/ hr IV Q36H [facility] Rx#: [id number] UNASYN/NS 3 GM/100 ML 3 100 200 gm In 100 ml @ 200 mls/hr IV Q6HR [facility] Rx#: [id number] Oral 360 240 240 Intake, Free Water 120 Output: Drainage 20 Abdomen 20 Urine 400 Void 400 Other: Total, Intake Amount 360 240 240 Total, Output Amount 420 Voiding Method Toilet # Voids 1 Void 2 1 - Exam Breasts: Present: normal Cardiovascular: Present: Regular rate, Normal S1 Lungs: Present: Clear to auscultation, Normal air movement Abdomen: Present: normal appearance, soft, normal bowel sounds. Absent: distention, tenderness, guarding Vulva: both: normal Extremities: Present: normal Deep Tendon Reflex Grade: Normal +2 Incision: Present: normal, dry, intact - Labs Labs: Abnormal lab results 06/13/18 Range/Units 07:47 WBC 13.3 H (4.5-11.0) K/mm3 MCH 26 L (28-32) pg
--- NOTE | 2018-06-13 14:09 | Event Note ---
Date: 06/13/18 Called and noted Ecoli + and needs to be transferred to contact floor . added sy. ID consulted and agree with plan
[2018-06-13] MEDS: D5LR 1,000 ML IV SCH ×2 (18:38→22:38)
[2018-06-13] MEDS: MERREM/NS 500 MG/50 ML 500 MG/50 ML BAG IV SCH ×3 (18:54→22:46)
[2018-06-13] MEDS: PERCOCET 5/325 PO PRN (20:58)
[2018-06-13] MEDS: AMBIEN PO PRN (22:37)
[2018-06-14] MEDS: MERREM/NS 500 MG/50 ML 500 MG/50 ML BAG IV SCH ×6 (00:07→23:55)
[2018-06-14] MEDS: TORADOL IV SCH ×5 (05:12→22:06)
[2018-06-14] MEDS: CLEOCIN 600 MG/50 mL 600 MG/50 ML BAG IV SCH ×3 (05:12→22:07)
[2018-06-14] MEDS: PERCOCET 5/325 PO PRN ×2 (06:23→18:01)
[2018-06-14] MEDS ORDERED: MILK OF MAGNESIA PO PRN (10:09)
--- NOTE | 2018-06-14 10:11 | Progress Note ---
Assessment and Plan - Patient Problems (1) Abdominal pain Current Visit: Yes Status: Acute Plan to address problem: will implement use of milk of magnesium will repeat CT scan and add oral contrast if patient does not demonstrate improvement with new antibiotic regimen (2) Abscess Current Visit: Yes Status: Acute (3) Tachycardia Current Visit: Yes Status: Acute Subjective - Subjective Date of service: 06/14/18 Interval history: Patient has not demonstrated any significant clinical improvement. Antibiotics changed yesterday to imipenen for E coli and enterococcus found on abdominal aspirate. Blood cultures are negative. Patient denies a bowel movement since Saturday but reports flatus. She is not experiencing any nausea or vomiting. Has been able to void. CONOR drainage is more serous today. Patient states she generally has 2 bowel movements a week. Slight improvement in leukocytosis Patient reports: flatus, pain poorly controlled, no appetite normal, no bowel movement Objective - Vital Signs Latest vital signs: Vital Signs Temp Pulse Resp Resp BP BP Pulse Ox 06/14/18 06:23 18 06/14/18 05:42 20 06/14/18 05:24 100.9 F H 115 H 20 139/67 93 06/14/18 05:12 20 06/14/18 00:09 98.2 F 103 H 18 144/113 92 06/13/18 23:23 103 H 92 06/13/18 23:07 18 06/13/18 22:37 18 06/13/18 22:27 94 06/13/18 21:58 20 06/13/18 21:20 20 96 06/13/18 21:01 20 06/13/18 20:58 20 06/13/18 19:00 20 06/13/18 18:08 100.0 F H 119 H 20 106/71 94 06/13/18 15:40 98.4 F 95 H 22 114/80 95 Intake and Output 06/13/18 06/14/18 06/14/18 22:59 06:59 14:59 Intake Total 700 460 Output Total 215 410 Balance 485 50 Intake: IV 700 100 CLEOCIN 600 MG/50 mL 600 50 50 mg In 50 ml @ 100 mls/hr IV Q8HR [facility] Rx#:[id number] D5lr 1,000 ml @ 150 mls/ 600 hr IV DIRECT [facility] Rx#: [id number] MERREM/NS 500 MG/50 ML 50 50 500 mg In 50 ml @ 50 mls/ hr IV Q6HR [facility] Rx#: [id number] Oral 0 360 Output: Drainage 15 10 Abdomen 15 10 Urine 200 400 Void 200 400 Other: Total, Intake Amount 0 360 Total, Output Amount 215 410 Voiding Method Toilet Weight 95.8 kg - Exam Abdomen: Present: soft, distention, tenderness Incision: Present: normal
[2018-06-14] MEDS: AMBIEN PO PRN (22:06)
[2018-06-14] MEDS: TYLENOL PO PRN (22:06)
[2018-06-14] MEDS: D5LR 1,000 ML IV SCH (22:07)
[2018-06-15] MEDS: MERREM/NS 500 MG/50 ML 500 MG/50 ML BAG IV SCH ×4 (06:20→23:34)
[2018-06-15] MEDS: TORADOL IV SCH ×2 (06:21→10:51)
[2018-06-15] MEDS: CLEOCIN 600 MG/50 mL 600 MG/50 ML BAG IV SCH ×2 (06:22→14:41)
[2018-06-15] MEDS: PERCOCET 5/325 PO PRN ×2 (11:34→21:27)
[2018-06-15] MEDS: MORPHINE IV PRN ×2 (14:40→19:18)
--- NOTE | 2018-06-15 14:49 | Progress Note ---
Assessment and Plan - Patient Problems (1) Abdominal pain Current Visit: Yes Status: Acute Plan to address problem: patient is currently drinking oral contrast will proceed with CT scan once she completes contrast (2) Abscess Current Visit: Yes Status: Acute (3) Tachycardia Current Visit: Yes Status: Acute Subjective - Subjective Date of service: 06/15/18 Interval history: Patient is not demonstrating subjectively having improvement. Febrile episodes have decreased but the patient continues to complain of right sided abdominal pain. She had a bowel movement yesterday but today the BM was watery. Still is receiving triple antibiotic therapy. Will proceed with oral contrast and CT scan of abdomen and pelvis. Will consult surgery pending results of CT scan. Patient reports: flatus, pain poorly controlled, no appetite normal Objective - Vital Signs Latest vital signs: Vital Signs Temp Pulse Resp BP BP Pulse Ox 06/15/18 13:22 99.2 F 20 122/65 06/15/18 10:00 95 06/15/18 05:20 98.9 F 107 H 20 114/68 94 06/14/18 22:00 98.3 F 99 H 16 144/76 97 06/14/18 21:05 95 06/14/18 17:14 98.2 F 116 H 20 111/65 97 Intake and Output 06/14/18 06/15/18 06/15/18 22:59 06:59 14:59 Intake Total 150 1450 50 Output Total 10 510 Balance 140 940 50 Intake: IV 150 100 50 CLEOCIN 600 MG/50 mL 600 100 50 mg In 50 ml @ 100 mls/hr IV Q8HR [facility] Rx#:[id number] MERREM/NS 500 MG/50 ML 50 50 50 500 mg In 50 ml @ 50 mls/ hr IV Q6HR [facility] Rx#: [id number] Oral 1350 Output: Drainage 10 10 Abdomen 10 10 Urine 500 Void 500 Other: Total, Intake Amount 500 Total, Output Amount 510 Voiding Method Toilet Toilet # Voids Void 1 - Exam Abdomen: Present: soft, distention, tenderness
--- NOTE | 2018-06-15 15:44 | Event Note ---
Date: 06/15/18 Received consultation for sepsis from post hysterectomy pelvic abscess. IR drainage cx + ESBL E coli and Entercoccus durans. Patient on merepenen and clindamycin. Will stop clindamycin in light of no need for double anaerobic coverage. Will add vanco to cover Enterococcus until MICs available. Pt to be seen in the morning. Agree w repeat CT.
[2018-06-15 15:58] LABS: Hematocrit 31.5 % (30.3-42.9); Mean Corpuscular HGB Conc 32 % (30-34); Mean Corpuscular Volume 79 fl (79-97); Platelet Count 359 K/mm3 (140-440); Red Blood Count 3.97 M/mm3 (3.65-5.03); Red Cell Distribution Width 14.8 % (13.2-15.2)
[2018-06-15] MEDS ORDERED: VANCOMYCIN VIAL 1,000 MG in NACL 0.9% 100 ML IV SCH (16:00)
[2018-06-15 16:20] LABS: Mean Corpuscular Hemoglobin 25 pg (28-32)
[2018-06-15 17:03] LABS: Band Neutrophils # (Manual) 0.9 K/mm3; Basophils % (Manual) 0 % (0.0-1.8); Hypochromasia 2+; Ovalocytes Few; Total Cells Counted 100
[2018-06-15 17:04] LABS: Anisocytosis 1+; Poikilocytosis 1+
[2018-06-15 17:06] LABS: Large Platelets Few; Platelet Estimate Consistent w Auto
--- NOTE | 2018-06-15 17:54 | Cat Scan Report ---
FINAL REPORT EXAM: CT ABDOMEN PELVIS W CON HISTORY: abd pain recent vaginal hysterectomy with intra-abdominal abscesses. TECHNIQUE: Axial images were performed from the lung bases to the pubic symphysis following IV contrast administration. Total exam DLP 3231.45 mGy-cm Multiplanar reformats are performed on the acquisition scanner. Previous CT performed 06/10/2018 reported 6.5 x 6.6 centimeter cul-de-sac irregular fluid collection extending into the bilateral lower quadrant along the retroperitoneal planes containing air-fluid levels in loculated fluid collections in the bilateral pericolic gutters extending into the right sub a patent region, recent vaginal hysterectomy FINDINGS: Developing moderate right and small left pleural effusions with subjacent consolidation. Calcified granulomata in the bilateral infrahilar regions. Heart size is within normal limits. Normal enhancement and appearance of the liver, spleen, pancreas, bilateral adrenal glands and bilateral kidneys. Gallbladder is moderately distended and demonstrates heterogeneous density. There has been interval placement of a suprapubic tube into the pelvic fluid collection with mild residual fluid. Urinary bladder is moderately distended and contains both fluid and air bubbles. Question recent catheterization versus fistula. There is a physiologic appearing peripherally enhancing right adnexal cyst measuring 1.4 centimeters an adjacent 0.5 centimeter cyst. The sigmoid colon is collapsed and thick-walled. There are organizing collections identified. The largest is in the right anterior peritoneal space anterior and lateral to the colon, extending up to the inferior hepatic tip. This collection measures at most 7.5 by 3 centimeters axially. In the coronal plane, from cephalad to caudal extension this collection measures 13 centimeters. There is fluid in the abdominal wall muscle layers which is more well defined on the current exam. There is focal fluid which may represent a developing fluid collection in the left lower quadrant anterior to the distal descending colon measuring 4.5 x 1.4 centimeters. Both of these collections could be accessed percutaneously. The left collection is much smaller than the right and may resolve on its own. There is significant reticulation of the anterior abdominal wall and lateral abdominal wall and flank. Delayed images demonstrate excretion of contrast with visualized ureters, right renal cyst and filling of the urinary bladder. IMPRESSION: Interval percutaneous suprapubic drainage of the cul-de-sac collection with mild residual fluid. Right lateral peritoneal focal fluid collection superficial to the right colon measures 13 centimeters craniocaudal length by 7.5 x 3 centimeters. There is a smaller left lower quadrant collection anterior to the distal descending colon measuring 4.5 x 1.4 centimeters. Consider percutaneous drainage of the right-sided collection and possibly sampling of the left-sided collection versus following it up. No hydronephrosis. Apparently functional right adnexal enhancing cyst. Probable gallbladder stones and sludge.
[2018-06-15] MEDS: VANCOMYCIN/NS 1 GM/250 ML 1 GM/250 ML BAG IV SCH (19:21)
[2018-06-15] MEDS ORDERED: NARCAN 0.4 MG/1 ML IV PRN (19:26)
--- NOTE | 2018-06-15 19:38 | Event Note ---
Date: 06/15/18 CT scan findings discussed with radiologist. Fluid collection on right side consistent with an abscess. The radiologist did not suggest any evidence of a bowel obstruction. Contrast was detected in large colon. Bowel perforation also was not detected on the imaging. Vancomycin added to antibiotic regimen today. Will schedule for CT guided drainage of fluid collection and placement of PICC line. Findings and plan discussed with patient.
[2018-06-15] MEDS: MORPHINE PCA 30MG/30ML IV SCH (22:12)
[2018-06-16] MEDS: MORPHINE PCA 30MG/30ML IV SCH ×2 (04:59→15:39)
[2018-06-16] MEDS: VANCOMYCIN/NS 1 GM/250 ML 1 GM/250 ML BAG IV SCH ×2 (05:15→18:00)
[2018-06-16] MEDS: MERREM/NS 500 MG/50 ML 500 MG/50 ML BAG IV SCH (05:15)
[2018-06-16] MEDS: D5LR 1,000 ML IV SCH (06:28)
--- NOTE | 2018-06-16 09:09 | Progress Note ---
Assessment and Plan - Patient Problems (1) Abdominal pain Current Visit: Yes Status: Acute (2) Abscess Current Visit: Yes Status: Acute Plan to address problem: s/p percutaneous drainage continue antibiotics and supportive care (3) Tachycardia Current Visit: Yes Status: Acute Subjective - Subjective Date of service: 06/16/18 Interval history: Patient underwent drainage of right sided abscess. See operative note. Purulent drainage was obtained. Currently has serous fluid in CONOR drain. Patient states she feels better. Denies any nausea or vomiting. Reports having bowel movements yesterday after ingestion of oral contrast. Will continue current antibiotic regimen. Fluid sent to lab. Patient reports: flatus, bowel movement Objective - Vital Signs Latest vital signs: Vital Signs Temp Pulse Resp Resp BP BP Pulse Ox 06/16/18 08:07 18 06/16/18 06:00 17 06/16/18 05:45 98.8 F 100 H 20 105/64 92 06/16/18 04:12 18 06/16/18 02:12 18 06/16/18 02:08 20 06/16/18 00:12 18 06/15/18 22:26 103.1 F H 115 H 36 H 123/69 98 06/15/18 22:12 20 06/15/18 22:00 20 18 06/15/18 21:43 103.1 F H 114 H 36 H 123/69 95 06/15/18 21:27 20 06/15/18 20:07 96 06/15/18 19:48 20 06/15/18 18:03 99.5 F 105 H 20 137/77 97 06/15/18 13:22 99.2 F 20 122/65 06/15/18 10:00 95 Intake and Output 06/15/18 06/16/18 06/16/18 22:59 06:59 14:59 Intake Total 350 1050 Output Total 0 5 Balance 350 1045 Intake: IV 350 50 MERREM/NS 500 MG/50 ML 100 50 500 mg In 50 ml @ 50 mls/ hr IV Q6HR [facility] Rx#: [id number] VANCOMYCIN/NS 1 GM/250 ML 250 1 gm In 250 ml @ 166.667 mls/hr IV Q12H [facility] Rx#: [id number] Oral 1000 Output: Drainage 0 5 Abdomen 0 5 Other: Total, Intake Amount 500 Total, Output Amount 5 Voiding Method Toilet Toilet # Voids Void 2 - Exam Abdomen: Present: soft, distention, tenderness (decreased tenderness) - Labs Labs: Abnormal lab results 06/15/18 Range/Units 15:27 WBC 17.6 H (4.5-11.0) K/mm3 Hgb 10.0 L (10.1-14.3) gm/dl MCH 25 L (28-32) pg Seg Neuts % (Manual) 71.0 H (40.0-70.0) % Seg Neutrophils # Man 12.5 H (1.8-7.7) K/mm3
[2018-06-16] MEDS ORDERED: XYLOCAINE 1% 20 mL ONE (11:52)
[2018-06-16] MEDS ORDERED: VERSED IV ONE ×3 (12:07→15:10)
[2018-06-16] MEDS ORDERED: SUBLIMAZE IV ONE (12:07)
[2018-06-16] MEDS ORDERED: SUBLIMAZE ONE ×2 (12:08→15:15)
--- NOTE | 2018-06-16 12:49 | Consultation ---
History of Present Illness - Reason for Consult Consult date: 06/16/18 intra-abdominal collection/ESBL E coli Requesting physician: ANTIONETTE LARRY - History of Present Illness 47 y/o female with history of , who underwent robotic hysterectomy on 05/04/18; admitted on 06/10/18 due to 3-day history of worsening pelvic pain associated with subjective fever. Patient felt nauseated. Denies cough, SOB, urinary symptoms. Abdominal pain was 10/10, diffuse. Denies diarrhea. In the ED, initial temperature was 100, heart rate 108, respiration 20, O2 sat 98%, blood pressure 115/47. Initial white count 14.3. Platelets 242. Hemoglobin 10.8. Creatinine 1.4. Urinalysis shows 16 white blood cells but negative leukocyte esterase.. Patient underwent IR drainage on 06/11/2017 which grew Escherichia coli ESBL and Enterococcus Durans. Most recent fever [address] of the abdomen showed multiple fluid collections mainly in the cul-de-sac 6.5 x 6 x 6 cm, bilateral lower and bilateral daughters. Microbiology: Blood cultures: 06/11 ngtd 06/16 ngtd Urine cultures: Respiratory cultures: Wound cultures: 06/11 ESBL E coli and E durans Current Antimicrobials: Vanco 06/13 Meropenem 06/13 Previous Antimicrobials: Past History Social history: Medications and Allergies Allergies Allergy/AdvReac Type Severity Reaction Status Date / Time No Known Allergies Allergy Unverified 05/30/18 08:21 Home Medications Medication Instructions Recorded Confirmed Last Taken Type HYDROcodone/APAP 5-325 [Whitney 1 each PO Q6HR PRN #14 tablet 05/08/18 06/14/18 Unknown Rx 5/325] Acyclovir [Zovirax] 400 mg PO DAILY 05/30/18 06/14/18 06/10/18 08:00 History traZODone [Desyrel] 100 mg PO QHS 05/30/18 06/14/18 06/03/18 History Docusate Sodium [Colace] 100 mg PO BID PRN #60 capsule 06/05/18 06/14/18 08:00 Rx 100 Ibuprofen [Motrin] 800 mg PO Q8HR PRN #60 tablet 06/05/18 06/14/18 Unknown Rx Oxycodone HCl/Acetaminophen 1 each PO Q6HR PRN #45 tablet 06/05/18 06/14/18 Unknown Rx [Percocet 7.5/325 mg] Active Meds: Active Medications Acetaminophen (Tylenol) 650 mg PO Q4H PRN PRN Reason: Pain, Mild (1-3) Last Admin: 06/14/18 22:06 Dose: 650 mg Dextrose/Lactated Ringer's (D5lr) 1,000 mls @ 150 mls/hr IV DIRECT KITA Last Admin: 06/16/18 06:28 Dose: 150 mls/hr Vancomycin HCl (Vancomycin/Ns 1 Gm/250 Ml) 1 gm in 250 mls @ 166.667 mls/hr IV Q12H KITA Last Admin: 06/16/18 05:15 Dose: 166.667 mls/hr Meropenem 1,000 mg/ Sodium (Chloride) 100 mls @ 100 mls/hr IV Q8HR KITA Magnesium Hydroxide (Milk Of Magnesia) 30 ml PO QDAY PRN PRN Reason: Constipation Last Admin: 06/14/18 12:07 Dose: 30 ml Morphine Sulfate (Morphine) 2 mg IV Q2HR PRN PRN Reason: Pain, Moderate (4-6) Last Admin: 06/15/18 19:18 Dose: 2 mg Morphine Sulfate (Morphine Assistant Producer 30mg/30ml) 0 mg IV DIRECT KITA; Protocol Last Admin: 06/16/18 04:59 Dose: 1 mg Naloxone HCl (Narcan 0.4 Mg/1 Ml) 0.1 mg IV Q2MIN PRN PRN Reason: Res Rate </= 8 or 02 SAT < 92% Ondansetron HCl (Zofran) 4 mg IV Q8H PRN PRN Reason: N/V unrelieved by Reglan Oxycodone/Acetaminophen (Percocet 5/325) 2 tab PO Q4H PRN PRN Reason: Pain, Moderate (4-6) Last Admin: 06/15/18 21:27 Dose: 2 tab Simethicone (Mylicon) 80 mg PO Q6H PRN PRN Reason: Gas pain Last Admin: 06/13/18 20:58 Dose: 80 mg Zolpidem Tartrate (Ambien) 10 mg PO QHS PRN PRN Reason: Insomnia Last Admin: 06/14/18 22:06 Dose: 10 mg Review of Systems All systems: negative (as per HPI) Physical Examination - Physical Exam Narrative exam: General appearance: Alert in NAD, in pain Eyes: anicteric sclerae, moist conjunctivae; no lid-lag; PERRLA HENT: Atraumatic; oropharynx clear Neck: Trachea midline; supple, no thyromegaly or lymphadenopathy Lungs: CTA CV: RRR, no murmurs Abdomen: Soft, diffusely tender, guarding R >L, left sided drain with minimal purulence Extremities: No peripheral edema or extremity lymphadenopathy Skin: Normal temperature, turgor and texture; no rash, ulcers or subcutaneous nodules Psych: Appropriate affect, alert and oriented to person, place and time. Neuro: alert and oriented x 3. Moving all extermities Lines: - Constitutional Vitals: Vital Signs Temp Pulse Resp BP Pulse Ox 98.8 F 100 H 18 105/64 92 06/16/18 05:45 06/16/18 05:45 06/16/18 08:07 06/16/18 05:45 06/16/18 05:45 Temperature -Last 24 Hours Temperature 98.8 F Temperature 103.1 F Temperature 103.1 F Temperature 99.5 F Temperature 99.2 F Results - Labs CBC & Chem 7: 06/15/18 15:27 06/12/18 05:19 Labs: Abnormal lab results 06/15/18 Range/Units 15:27 WBC 17.6 H (4.5-11.0) K/mm3 Hgb 10.0 L (10.1-14.3) gm/dl MCH 25 L (28-32) pg Seg Neuts % (Manual) 71.0 H (40.0-70.0) % Seg Neutrophils # Man 12.5 H (1.8-7.7) K/mm3 Assessment and Plan Assessment: 1) Sepsis: Present on admission, manifested by fever, tachycardia, leukocytosis.. Etiology most likely intra-abdominal collections. -Urinalysis shows 16 white blood cells but negative leukocyte esterase. -Blood cultures 06/11 and 06/16 both negative 2) Multiple intra-abdominal collections: likely from recent lap-hysterectomy -CT of the abdomen showed multiple fluid collections mainly in the cul-de- sac 6.5 x 6 x 6 cm, bilateral lower quadrants and bilateral gutters, free air -S/P IR drainage on 06/11/2017 which grew Escherichia coli ESBL and Enterococcus Durans -CT 06/15 Suprapubic drain with minimal residual fluid, right lateral peritoneal fluid collection 13x7.5x3 cm and LLQ collection 4.5x1.4 cm 3) S/P robotic hysterectomy on 05/04/18 Plan: -follow-up blood cultures -agree with further IR drainage -monitor fever and leukocytosis -continue meropenem and vancomycin for now -contact isolation for ESBL -will require IV ertapenem 1 g q day for 2-3 weeks upon discharge -PICC line once repeat blood cx negative for 48h Discussed with Dr Castellanos Thank you for your consultation, will follow up with you. Yun Matos MD Infectious Diseases Specialist [facility] ([facility]) M [phone] O [phone]
--- NOTE | 2018-06-16 13:41 | Cat Scan Report ---
Exam: CT guided drainage of abdominal abscess Clinical indication: Patient with abdominal abscess Date: 06/16/2018 Procedure: Following explanation of the risks, benefits and alternatives; written informed consent was obtained. The patient was brought to the CT suite and placed in supine position on the gantry. Initial office copy selector images the abdomen was performed and an appropriate access site was chosen in the right lower quadrant. The patient's right lower quadrant was prepped and draped in usual sterile fashion. 1% lidocaine was used for anesthesia. His intermittent CT guidance, a 15 cm 18-gauge trocar needle was advanced into the central aspect of the fluid collection. The trocar was removed and there was prompt return of clear lymph fluid. A 0.035 guidewire was advanced through the needle and coiled within the fluid collection. Following serial dilation over the guidewire, an 8 Wallisian pigtail drainage catheter was placed over the guidewire and positioned in the central aspect of the fluid collection. The guidewire was removed. A total of 110 mL's of purulent fluid was aspirated. Samples sent for laboratory analysis. The catheter was filled to the skin surface using 0 silk suture and a stat lock device. A sterile dressing was applied. The catheter was then placed to CONOR bulb drainage. The patient's previously placed drainage catheter deep within the pelvis was noted to have no significant drainage and a decision from was made to remove the catheter. The catheter was cut to release the pigtail and the catheter then removed intact. A sterile dressing was applied. The patient tolerated the procedure well. There were no immediate post procedure complications. Conscious sedation was performed under the guidance of radiologic nursing. Continuous cardiopulmonary monitoring was utilized. Impression: 1) CT-guided placement of right lower quadrant abdominal abscess with 110 mL subperiosteal fluid aspirated and an 8 Wallisian pigtail drainage catheter left behind. 2) Removal of previously placed pelvic abscess drainage catheter
[2018-06-16] MEDS: MERREM 1,000 MG in NACL 0.9% 100 ML IV SCH (15:26)
[2018-06-16] MEDS ORDERED: D5LR 1,000 ML IV SCH (18:00)
[2018-06-16] MEDS: TYLENOL PO PRN (21:07)
[2018-06-17] MEDS: D5LR 1,000 ML IV SCH ×2 (00:29→22:47)
[2018-06-17] MEDS: MERREM 1,000 MG in NACL 0.9% 100 ML IV SCH ×4 (00:29→22:46)
[2018-06-17] MEDS: MORPHINE PCA 30MG/30ML IV SCH ×2 (03:00→19:33)
[2018-06-17 06:31] LABS: Hematocrit 29.8 % (30.3-42.9); Hemoglobin 9.7 gm/dl (10.1-14.3); Mean Corpuscular HGB Conc 33 % (30-34); Mean Corpuscular Hemoglobin 26 pg (28-32); Mean Corpuscular Volume 78 fl (79-97); Red Cell Distribution Width 14.4 % (13.2-15.2)
[2018-06-17 06:32] LABS: Platelet Count 411 K/mm3 (140-440)
[2018-06-17] MEDS: VANCOMYCIN/NS 1 GM/250 ML 1 GM/250 ML BAG IV SCH (07:27)
[2018-06-17] MEDS: TYLENOL PO PRN ×2 (07:40→17:11)
[2018-06-17 09:24] LABS: Anisocytosis 1+; Band Neutrophils # (Manual) 0.4 K/mm3; Basophils % (Manual) 0 % (0.0-1.8); Hypochromasia 2+; Ovalocytes Few; Platelet Estimate Consistent w Auto; Poikilocytosis 1+; Total Cells Counted 100
--- NOTE | 2018-06-17 14:01 | Progress Note ---
Assessment and Plan - Patient Problems (1) Abdominal pain Current Visit: Yes Status: Acute Plan to address problem: demonstrating clinical improvement continue with IV antibiotics scheduled for placement of PICC line tomorrow will need to plan for home health assistance (2) Abscess Current Visit: Yes Status: Acute (3) Tachycardia Current Visit: Yes Status: Acute Subjective - Subjective Date of service: 06/17/18 Interval history: Patient reports improvement and her symptoms today. She is sitting in the chair. Experienced difficulty with IV during the patient access associate. Patient upset and frustrated. States her pain is decreased. She is still tolerating po and passing flatus. Last temp spike yesterday of 100.5. CONOR in place with drainage. Patient reports: appetite normal, flatus Objective - Vital Signs Latest vital signs: Vital Signs Temp Pulse Resp BP Pulse Ox 06/17/18 12:33 99.6 F 106 H 16 131/79 96 06/17/18 06:24 99.0 F 101 H 18 124/75 97 06/16/18 23:38 98.5 F 97 H 16 106/66 99 06/16/18 19:46 98 06/16/18 17:56 100.5 F H 115 H 24 137/79 95 06/16/18 17:39 18 Intake and Output 06/16/18 06/17/18 06/17/18 22:59 06:59 14:59 Intake Total 710 950 580 Output Total 0 Balance 710 950 580 Intake: IV 350 100 100 Merrem 1,000 mg In NaCl 0 100 100 100 .9% 100 ml @ 100 mls/hr IV Q8HR KITA Rx#:[id number] VANCOMYCIN/NS 1 GM/250 ML 250 1 gm In 250 ml @ 166.667 mls/hr IV Q12H KITA Rx#: [id number] Oral 360 480 Intake, Free Water 850 Output: Drainage 0 Abdomen 0 Other: Total, Intake Amount 360 480 Total, Output Amount 0 Voiding Method Toilet Toilet # Voids Void 1 2 600 # Bowel Movements 0 1 - Exam Abdomen: Present: soft, distention - Labs Labs: Abnormal lab results 06/16/18 06/17/18 Range/Units 13:57 05:50 WBC 20.8 H (4.5-11.0) K/mm3 Hgb 9.7 L (10.1-14.3) gm/dl Hct 29.8 L (30.3-42.9) % MCV 78 L (79-97) fl MCH 26 L (28-32) pg Seg Neuts % (Manual) 80.0 H (40.0-70.0) % Lymphocytes % (Manual) 10.0 L (13.4-35.0) % Seg Neutrophils # Man 16.6 H (1.8-7.7) K/mm3 Eosinophils # (Manual) 0.8 H (0.0-0.4) K/mm3 C-Reactive Protein 30.30 H (0.00-1.30) mg/dL
--- NOTE | 2018-06-17 14:19 | Progress Note ---
Assessment and Plan Assessment: 1) Sepsis: some better.. Etiology most likely intra-abdominal collections. -Urinalysis shows 16 white blood cells but negative leukocyte esterase. -Blood cultures 06/11 and 06/16 both negative 2) Multiple intra-abdominal collections: likely from recent lap-hysterectomy -CT of the abdomen showed multiple fluid collections mainly in the cul-de- sac 6.5 x 6 x 6 cm, bilateral lower quadrants and bilateral gutters, free air -S/P IR drainage on 06/11/2017 which grew Escherichia coli ESBL and Enterococcus Durans -CT 06/15 Suprapubic drain with minimal residual fluid, right lateral peritoneal fluid collection 13x7.5x3 cm and LLQ collection 4.5x1.4 cm -S/P IR drainage on 06/16/2017 which growing GNRs 3) S/P robotic hysterectomy on 05/04/18 Plan: -monitor fever and leukocytosis -continue meropenem and vancomycin for now -contact isolation for ESBL -upon discharge will do IV ertapenem 1 g q day for 2 weeks until 06/30/18. Order sent to [facility] -repeat CT abd in 5 days -PICC line once repeat blood cx negative for 48h Thank you for your consultation, will follow up with you. Yun Matos MD Infectious Diseases Specialist [facility] ([facility]) M [phone] O [phone] Subjective Date of service: 06/17/18 Principal diagnosis: pelvic abscesses Interval history: Feels better, right sided abd pain is better, underwent IR drain placement to the right ~110 cc drainage obtained. Fever trending down. Microbiology: Blood cultures: 06/11 ngtd 06/16 ngtd 06/17 ngtd Urine cultures: Respiratory cultures: Wound cultures: 06/11 ESBL E coli and E durans 06/16 GNR Current Antimicrobials: Vanco 06/13 Meropenem 06/13 Objective - Exam Narrative Exam: General appearance: Alert in NAD, in pain Eyes: anicteric sclerae, moist conjunctivae; no lid-lag; PERRLA HENT: Atraumatic; oropharynx clear Neck: Trachea midline; supple, no thyromegaly or lymphadenopathy Lungs: CTA CV: RRR, no murmurs Abdomen: Soft, diffusely tender, guarding R >L, left sided drain with minimal purulence Extremities: No peripheral edema or extremity lymphadenopathy Skin: Normal temperature, turgor and texture; no rash, ulcers or subcutaneous nodules Psych: Appropriate affect, alert and oriented to person, place and time. Neuro: alert and oriented x 3. Moving all extermities Lines: - Constitutional Vitals: Vital Signs Temp Pulse Resp BP Pulse Ox 99.6 F 106 H 16 131/79 96 06/17/18 12:33 06/17/18 12:33 06/17/18 12:33 06/17/18 12:33 06/17/18 12:33 Temperature -Last 24 Hours Temperature 99.6 F Temperature 99.0 F Temperature 98.5 F Temperature 100.5 F - Labs CBC & Chem 7: 06/17/18 05:50 06/12/18 05:19 Labs: Abnormal lab results 06/16/18 06/17/18 Range/Units 13:57 05:50 WBC 20.8 H (4.5-11.0) K/mm3 Hgb 9.7 L (10.1-14.3) gm/dl Hct 29.8 L (30.3-42.9) % MCV 78 L (79-97) fl MCH 26 L (28-32) pg Seg Neuts % (Manual) 80.0 H (40.0-70.0) % Lymphocytes % (Manual) 10.0 L (13.4-35.0) % Seg Neutrophils # Man 16.6 H (1.8-7.7) K/mm3 Eosinophils # (Manual) 0.8 H (0.0-0.4) K/mm3 C-Reactive Protein 30.30 H (0.00-1.30) mg/dL
[2018-06-17] MEDS: VANCOMYCIN 1,500 MG in NACL 0.9% 500 ML 500 ML IV SCH (17:12)
[2018-06-17] MEDS: AMBIEN PO PRN (22:47)
[2018-06-18] MEDS: MERREM 1,000 MG in NACL 0.9% 100 ML IV SCH ×3 (05:53→21:28)
[2018-06-18] MEDS: VANCOMYCIN 1,500 MG in NACL 0.9% 500 ML 500 ML IV SCH ×2 (06:02→18:12)
[2018-06-18] MEDS: TYLENOL PO PRN ×2 (06:02→18:04)
[2018-06-18] MEDS: D5LR 1,000 ML IV SCH (08:34)
--- NOTE | 2018-06-18 09:46 | Progress Note ---
Assessment and Plan Assessment: 1) Sepsis: better. Etiology most likely intra-abdominal collections. -Urinalysis shows 16 white blood cells but negative leukocyte esterase. -Blood cultures 06/11 and 06/16 both negative 2) Multiple intra-abdominal collections: likely from recent lap-hysterectomy -CT of the abdomen showed multiple fluid collections mainly in the cul-de- sac 6.5 x 6 x 6 cm, bilateral lower quadrants and bilateral gutters, free air -S/P IR drainage on 06/11/2017 which grew Escherichia coli ESBL and Enterococcus Durans -CT 06/15 Suprapubic drain with minimal residual fluid, right lateral peritoneal fluid collection 13x7.5x3 cm and LLQ collection 4.5x1.4 cm -S/P IR drainage on 06/16/2017 which growing GNRs - likely ESBL E coli 3) S/P robotic hysterectomy on 05/04/18 Plan: -monitor fever and leukocytosis -continue meropenem and vancomycin for now -contact isolation for ESBL -upon discharge will do IV ertapenem 1 g q day for 2 weeks until 06/30/18. Order sent to case fitter -repeat CT abd on Saturday if OK and fever resolved ok to d/c -PICC line -pt educated about ESBL and treatment I am rounding on 06/20 Thank you for your consultation, will follow up with you. Yun Matos MD Infectious Diseases Specialist [facility] ([facility]) M [phone] O [phone] Subjective Date of service: 06/18/18 Principal diagnosis: pelvic abscesses Interval history: Feels better, right sided abd pain is better but still feels some cramps, tmax 100.2 Microbiology: Blood cultures: 06/11 neg 06/16 neg 06/17 ngtd Urine cultures: Respiratory cultures: Wound cultures: 06/11 ESBL E coli and E durans 06/16 GNR Current Antimicrobials: Vanco 06/13 Meropenem 06/13 Objective - Exam Narrative Exam: General appearance: Alert in NAD, in pain Eyes: anicteric sclerae, moist conjunctivae; no lid-lag; PERRLA HENT: Atraumatic; oropharynx clear Neck: Trachea midline; supple, no thyromegaly or lymphadenopathy Lungs: CTA CV: RRR, no murmurs Abdomen: Soft, diffusely tender, guarding R >L, right sided drain with minimal serous Extremities: No peripheral edema or extremity lymphadenopathy Skin: Normal temperature, turgor and texture; no rash, ulcers or subcutaneous nodules Psych: Appropriate affect, alert and oriented to person, place and time. Neuro: alert and oriented x 3. Moving all extermities Lines: - Constitutional Vitals: Vital Signs Temp Pulse Resp BP Pulse Ox 99.1 F 110 H 16 102/67 91 06/18/18 06:28 06/18/18 06:28 06/18/18 07:33 06/18/18 06:28 06/18/18 06:28 Temperature -Last 24 Hours Temperature 99.1 F Temperature 99.8 F Temperature 100.3 F Temperature 99.6 F - Labs CBC & Chem 7: 06/17/18 05:50 06/12/18 05:19
[2018-06-18] MEDS: MORPHINE PCA 30MG/30ML IV SCH (11:06)
--- NOTE | 2018-06-18 13:42 | XRay Report ---
FINAL REPORT EXAM: XR CHEST 1V AP HISTORY: Right upper arm picc placement TECHNIQUE: Frontal chest radiograph. PRIORS: None. FINDINGS: A right upper extremity PICC is present with the tip lying within the right atrium. There is cardiomegaly. Patchy bilateral lower lobe opacities are seen. There is mild bilateral pulmonary edema. Moderate bilateral, right greater than left pleural effusions are seen. No pneumothorax. No acute osseous abnormality. IMPRESSION: 1. Right upper extremity PICC tip lying within the right atrium. 2. Cardiomegaly with bilateral pulmonary edema and moderate to large bilateral pleural effusions. Bibasilar opacities may reflect atelectasis versus edema. Underlying pneumonia would be difficult to exclude.
--- NOTE | 2018-06-18 14:16 | Progress Note ---
Assessment and Plan - Patient Problems (1) Abdominal pain Current Visit: Yes Status: Acute Plan to address problem: continue current antibiotic regimen will administer a dose of lasix repeat CT scan on Saturday (2) Abscess Current Visit: Yes Status: Acute (3) Tachycardia Current Visit: Yes Status: Acute Subjective - Subjective Date of service: 06/18/18 Principal diagnosis: pelvic abscesses Interval history: Patient in better spirits today. Had placement of PICC line today for extended antibiotic treatment. Awaiting approval from insurance. CXR with findings of pleural effusions. Patient states having mild chest discomfort on right. Suspect symptoms are an inflammatory to response to abscess on the right. CONOR in place with serosang drainage. She continues to have normal bowel function. Patient reports: appetite normal, voiding normally Objective - Vital Signs Latest vital signs: Vital Signs Temp Pulse Resp BP Pulse Ox 06/18/18 09:33 18 06/18/18 07:33 16 06/18/18 06:28 99.1 F 110 H 20 102/67 91 06/18/18 00:18 99.8 F H 113 H 18 136/76 92 06/17/18 22:00 16 06/17/18 21:13 99 06/17/18 16:41 100.3 F H 112 H 20 120/76 94 Intake and Output 06/17/18 06/18/18 06/18/18 22:59 06:59 14:59 Intake Total 890 620 910.9 Output Total 545 1500 50 Balance 345 -880 860.9 Intake: IV 530 100 430.9 D5lr 1,000 ml @ 42 mls/hr 410.9 IV DIRECT KITA Rx#: [id number] Merrem 1,000 mg In NaCl 0 100 .9% 100 ml @ 100 mls/hr IV Q8HR K[facility] Rx#:[id number] Right Upper arm 20 Vancomycin 1,500 mg In 530 NaCl 0.9% 500 ml 500 ml @ 333.333 mls/hr IV Q12H KITA Rx#:[id number] Oral 360 520 360 Intake, Free Water 120 Output: Drainage 45 50 Abdomen 45 50 Urine 500 1500 Void 500 750 Other: Total, Intake Amount 120 520 360 Total, Output Amount 500 750 25 Voiding Method Toilet Toilet Toilet # Voids 0 # Bowel Movements 0 0 - Exam Abdomen: Present: soft, distention Extremities: Present: edema
[2018-06-18] MEDS ORDERED: LASIX PO ONE ×2 (14:22→15:00)
--- NOTE | 2018-06-18 16:11 | XRay Report ---
FINAL REPORT EXAM: XR CHEST 1V AP HISTORY: right upper arm picc placement TECHNIQUE: Frontal chest radiograph. PRIORS: Chest x-ray from earlier today. FINDINGS: The right upper extremity PICC tip again projects within the right atrium. Unchanged cardiomegaly and bilateral pulmonary edema. Unchanged patchy bilateral lower lobe opacities. Unchanged bilateral pleural effusions. No pneumothorax. No acute osseous abnormality. IMPRESSION: Right upper extremity PICC tip again projecting in the right atrium. Unchanged bilateral pulmonary edema, bilateral pleural effusions and bibasilar atelectasis.
[2018-06-18 17:59] LABS: Basophils % (Auto) 0.1 % (0.0-1.8); Eosinophils # (Auto) 0.1 K/mm3 (0.0-0.4); Eosinophils % (Auto) 0.6 % (0.0-4.3); Hematocrit 28.7 % (30.3-42.9); Hemoglobin 10.1 gm/dl (10.1-14.3); Lymphocytes # (Auto) 3.1 K/mm3 (1.2-5.4); Lymphocytes % (Auto) 16.7 % (13.4-35.0); Mean Corpuscular HGB Conc 35 % (30-34); Mean Corpuscular Hemoglobin 28 pg (28-32); Mean Corpuscular Volume 79 fl (79-97); Monocytes # (Auto) 0.9 K/mm3 (0.0-0.8); Monocytes % (Auto) 4.8 % (0.0-7.3); Platelet Count 486 K/mm3 (140-440); Red Blood Count 3.65 M/mm3 (3.65-5.03); Red Cell Distribution Width 14.5 % (13.2-15.2)
[2018-06-18] MEDS ORDERED: LASIX IV NR (18:15)
--- NOTE | 2018-06-18 18:54 | XRay Report ---
FINAL REPORT EXAM: XR CHEST 1V AP HISTORY: PICC line placement TECHNIQUE: Frontal portable view of the chest Comparison: Chest x-ray performed earlier today at 19:48 FINDINGS: There is a right-sided PICC line with the tip projected in the region of the superior vena cava above the caval atrial junction. There continues to be evidence of moderate-sized bilateral pleural fluid collections with associated pulmonary consolidation in both lung bases. There continues to be prominence of the interstitial markings bilaterally similar in appearance to the previous study. The cardiac silhouette is enlarged and not significantly changed. IMPRESSION: 1. The right-sided PICC line has been pulled back with the tip now projected in the region of the superior vena cava above the level of the caval atrial junction. 2. Otherwise no significant interval change.
[2018-06-18] MEDS: AMBIEN PO PRN (21:28)
[2018-06-19] MEDS: MORPHINE PCA 30MG/30ML IV SCH ×2 (03:35→16:51)
[2018-06-19] MEDS: MERREM 1,000 MG in NACL 0.9% 100 ML IV SCH ×3 (05:22→21:44)
[2018-06-19 06:21] LABS: Basophils # (Auto) 0.1 K/mm3 (0.0-0.1); Basophils % (Auto) 0.4 % (0.0-1.8); Eosinophils # (Auto) 0.1 K/mm3 (0.0-0.4); Eosinophils % (Auto) 0.7 % (0.0-4.3); Hematocrit 29.6 % (30.3-42.9); Hemoglobin 9.6 gm/dl (10.1-14.3); Lymphocytes # (Auto) 1.9 K/mm3 (1.2-5.4); Lymphocytes % (Auto) 12.1 % (13.4-35.0); Mean Corpuscular HGB Conc 33 % (30-34); Mean Corpuscular Volume 79 fl (79-97); Monocytes # (Auto) 0.8 K/mm3 (0.0-0.8); Monocytes % (Auto) 5.4 % (0.0-7.3); Platelet Count 492 K/mm3 (140-440); Red Blood Count 3.73 M/mm3 (3.65-5.03); Red Cell Distribution Width 14.2 % (13.2-15.2)
[2018-06-19 06:42] LABS: Mean Corpuscular Hemoglobin 26 pg (28-32)
[2018-06-19] MEDS: VANCOMYCIN 1,500 MG in NACL 0.9% 500 ML 500 ML IV SCH ×2 (06:51→17:31)
--- NOTE | 2018-06-19 09:51 | Progress Note ---
Assessment and Plan - Patient Problems (1) Abdominal pain Current Visit: Yes Status: Acute (2) Abscess Current Visit: Yes Status: Acute Plan to address problem: continue current management Repeat CT ordered for tomorrow along with CBC (3) Tachycardia Current Visit: Yes Status: Acute Subjective - Subjective Date of service: 06/19/18 Principal diagnosis: pelvic abscesses Interval history: No significant changes today. Patient still having right sided pain. Leukocytosis is improving. Last temp spike 100.4 yesterday. Patient states one channel of the PICC line was not functioning. Awaiting approval from her insurance carrier for home health services to receive IV antibiotics. Patient reports: appetite normal, voiding normally, flatus Objective - Vital Signs Latest vital signs: Vital Signs Temp Pulse Resp BP Pulse Ox 06/19/18 06:05 99.6 F 109 H 18 123/80 90 06/18/18 22:36 98.8 F 18 96/60 06/18/18 18:04 18 06/18/18 17:01 100.4 F H 111 H 20 117/73 95 06/18/18 12:43 98.8 F 108 H 20 123/72 95 Intake and Output 06/18/18 06/19/18 06/19/18 22:59 06:59 14:59 Intake Total 730 1150 Output Total 20 Balance 730 1130 Intake: IV 730 Merrem 1,000 mg In NaCl 0 200 .9% 100 ml @ 100 mls/hr IV Q8HR KITA Rx#:[id number] Vancomycin 1,500 mg In 530 NaCl 0.9% 500 ml 500 ml @ 333.333 mls/hr IV Q12H [facility] Rx#:[id number] Oral 1150 Output: Drainage 20 Abdomen 20 Other: Total, Intake Amount 300 Total, Output Amount 20 Voiding Method Toilet - Exam Abdomen: Present: soft, tenderness - Labs Labs: Abnormal lab results 06/18/18 06/19/18 Range/Units 17:16 06:04 WBC 18.7 H 15.7 H (4.5-11.0) K/mm3 Hgb 9.6 L (10.1-14.3) gm/dl Hct 28.7 L 29.6 L (30.3-42.9) % MCH 26 L (28-32) pg MCHC 35 H (30-34) % Plt Count 486 H 492 H (140-440) K/mm3 Lymph % (Auto) 12.1 L (13.4-35.0) % [place] # 0.9 H (0.0-0.8) K/mm3 Seg Neutrophils % 77.8 H 81.4 H (40.0-70.0) % Seg Neutrophils # 14.5 H 12.8 H (1.8-7.7) K/mm3
--- NOTE | 2018-06-19 16:44 | Event Note ---
Date: 06/19/18 The patient has been approved for home health. Plan to discharge home tomorrow if patient remains stable
[2018-06-19] MEDS: AMBIEN PO PRN (22:19)
[2018-06-20] MEDS: MERREM 1,000 MG in NACL 0.9% 100 ML IV SCH ×3 (06:02→22:39)
[2018-06-20] MEDS: D5LR 1,000 ML IV SCH (06:02)
[2018-06-20 06:40] LABS: Basophils % (Auto) 0.2 % (0.0-1.8); Eosinophils # (Auto) 0.1 K/mm3 (0.0-0.4); Eosinophils % (Auto) 0.5 % (0.0-4.3); Hematocrit 27.7 % (30.3-42.9); Hemoglobin 9.1 gm/dl (10.1-14.3); Lymphocytes # (Auto) 2.4 K/mm3 (1.2-5.4); Mean Corpuscular HGB Conc 33 % (30-34); Mean Corpuscular Volume 79 fl (79-97); Monocytes # (Auto) 1.2 K/mm3 (0.0-0.8); Monocytes % (Auto) 7.3 % (0.0-7.3); Platelet Count 537 K/mm3 (140-440); Red Blood Count 3.53 M/mm3 (3.65-5.03); Red Cell Distribution Width 14.2 % (13.2-15.2)
[2018-06-20 06:57] LABS: Mean Corpuscular Hemoglobin 26 pg (28-32)
[2018-06-20] MEDS: VANCOMYCIN 1,500 MG in NACL 0.9% 500 ML 500 ML IV SCH (07:16)
--- NOTE | 2018-06-20 09:51 | Progress Note ---
Assessment and Plan Assessment: 1) Sepsis: still low grade fever. Etiology most likely intra-abdominal collections. -Urinalysis shows 16 white blood cells but negative leukocyte esterase. -Blood cultures 06/11 and 06/16 both negative 2) Multiple intra-abdominal collections: likely from recent lap-hysterectomy -CT of the abdomen showed multiple fluid collections mainly in the cul-de- sac 6.5 x 6 x 6 cm, bilateral lower quadrants and bilateral gutters, free air -S/P IR drainage on 06/11/2017 which grew Escherichia coli ESBL and Enterococcus Durans -CT 06/15 Suprapubic drain with minimal residual fluid, right lateral peritoneal fluid collection 13x7.5x3 cm and LLQ collection 4.5x1.4 cm -S/P IR drainage on 06/16/2017 which grew ESBL E coli 3) S/P robotic hysterectomy on 05/04/18 Plan: -monitor fever and leukocytosis -continue meropenem -stop vancomycin -contact isolation for ESBL -upon discharge will do IV ertapenem 1 g q day for 2 weeks until 06/30/18. Order sent to watch caser -repeat CT abd today if OK and fever resolved ok to d/c -PICC line -pt educated about ESBL and treatment I am rounding on 06/22 Thank you for your consultation, will follow up with you. Yun Matos MD Infectious Diseases Specialist [facility], [place] [facility] ([facility]) M [phone] O [phone] Subjective Date of service: 06/20/18 Principal diagnosis: pelvic abscesses Interval history: Feels better, right sided abd pain is better, still 100.2 Microbiology: Blood cultures: 06/11 neg 06/16 neg 06/17 ngtd Urine cultures: Respiratory cultures: Wound cultures: 06/11 ESBL E coli and E durans 06/16 ESBL E coli Current Antimicrobials: Vanco 06/13 Meropenem 06/13 Objective - Exam Narrative Exam: General appearance: Alert in NAD, in pain Eyes: anicteric sclerae, moist conjunctivae; no lid-lag; PERRLA HENT: Atraumatic; oropharynx clear Neck: Trachea midline; supple, no thyromegaly or lymphadenopathy Lungs: CTA CV: RRR, no murmurs Abdomen: Soft, diffusely tender, guarding R >L, right sided drain with minimal serous Extremities: No peripheral edema or extremity lymphadenopathy Skin: Normal temperature, turgor and texture; no rash, ulcers or subcutaneous nodules Psych: Appropriate affect, alert and oriented to person, place and time. Neuro: alert and oriented x 3. Moving all extermities Lines: - Constitutional Vitals: Vital Signs Temp Pulse Resp BP Pulse Ox 99.5 F 107 H 16 109/61 97 06/20/18 05:28 06/20/18 05:28 06/20/18 05:28 06/20/18 05:28 06/20/18 05:28 Temperature -Last 24 Hours Temperature 99.5 F Temperature 100.2 F Temperature 99.7 F Temperature 98.9 F - Labs CBC & Chem 7: 06/20/18 06:00 06/12/18 05:19 Labs: Abnormal lab results 06/20/18 Range/Units 06:00 WBC 16.2 H (4.5-11.0) K/mm3 RBC 3.53 L (3.65-5.03) M/mm3 Hgb 9.1 L (10.1-14.3) gm/dl Hct 27.7 L (30.3-42.9) % MCH 26 L (28-32) pg Plt Count 537 H (140-440) K/mm3 [place] # 1.2 H (0.0-0.8) K/mm3 Seg Neutrophils % 77.0 H (40.0-70.0) % Seg Neutrophils # 12.5 H (1.8-7.7) K/mm3
--- NOTE | 2018-06-20 12:17 | Progress Note ---
Assessment and Plan A/P Pelvic abscess CT scan ( patient had spike in temp last night 100.2 appreciate ID consult per ID if CT stable will send home with Percocet already has home health for 2 weeks of IV abx considering d/c home today pending ID and ct status Subjective - Subjective Date of service: 06/20/18 Principal diagnosis: pelvic abscesses Patient reports: appetite normal, voiding normally, pain well controlled, flatus , bowel movement, ambulating normally Objective - Vital Signs Latest vital signs: Vital Signs Temp Pulse Resp BP Pulse Ox 06/20/18 05:28 99.5 F 107 H 16 109/61 97 06/19/18 22:34 100.2 F H 107 H 16 134/72 94 06/19/18 16:49 99.7 F H 110 H 18 137/75 93 Intake and Output 06/19/18 06/20/18 06/20/18 23:59 07:59 15:59 Intake Total 650 850 Balance 650 850 Intake: IV 650 Merrem 1,000 mg In NaCl 0 100 .9% 100 ml @ 100 mls/hr IV Q8HR [facility] Rx#:[id number] Right Upper arm 20 Vancomycin 1,500 mg In 530 NaCl 0.9% 500 ml 500 ml @ 333.333 mls/hr IV Q12H [facility] Rx#:[id number] Oral 850 Other: Total, Intake Amount 850 Voiding Method Toilet Toilet # Voids Void 1 - Exam Breasts: Present: normal Cardiovascular: Present: Regular rate, Normal S1 Lungs: Present: Clear to auscultation, Normal air movement Abdomen: Present: normal appearance, normal bowel sounds. Absent: distention, tenderness, guarding Extremities: Present: normal Deep Tendon Reflex Grade: Normal +2 Incision: Present: normal, dry, intact - Labs Labs: Abnormal lab results 06/20/18 Range/Units 06:00 WBC 16.2 H (4.5-11.0) K/mm3 RBC 3.53 L (3.65-5.03) M/mm3 Hgb 9.1 L (10.1-14.3) gm/dl Hct 27.7 L (30.3-42.9) % MCH 26 L (28-32) pg Plt Count 537 H (140-440) K/mm3 [place] # 1.2 H (0.0-0.8) K/mm3 Seg Neutrophils % 77.0 H (40.0-70.0) % Seg Neutrophils # 12.5 H (1.8-7.7) K/mm3
--- NOTE | 2018-06-20 13:51 | Cat Scan Report ---
FINAL REPORT EXAM: CT ABDOMEN PELVIS W CON HISTORY: F/U from previous CT/ pelvic abscesses TECHNIQUE: CT of the abdomen and pelvis with IV contrast. Coronal and sagittal reconstructed imaging provided. PRIORS: CT abdomen and pelvis June 15, 2018. FINDINGS: ABDOMEN: Stable cardiomegaly. Small pericardial effusion may be physiologic and is relatively unchanged. Partially imaged moderate right and small left pleural effusions with adjacent areas of compressive atelectasis. Underlying infiltrate or mass is not excluded. Layering density within the gallbladder may represent stones and or sludge. Differential diagnosis includes vicarious excretion contrast. Liver, stomach, spleen, pancreas, and adrenals are unremarkable. Bilateral renal cysts are stable. No hydronephrosis. No suspicious enhancing lesions. There is no abdominal aortic aneurysm. No dissection. IVC is unremarkable. There is no periaortic or retroperitoneal adenopathy or mass. Series 2:120 demonstrates a rim enhancing fluid collection in the left lower quadrant/pelvis measuring 3.7 x 1.5 cm and is relatively unchanged compared to the prior. Abscess subjacent to the right inferior liver measures 2.0 by 8.1 cm and is slightly decreased compared to the prior measuring 3.1 x 8.7 cm. Percutaneous drainage catheter in the right lower quadrant with surrounding abscess measures 2.1 x 2.6 cm and is decreased compared to the prior measuring 4.0 x 6.1 cm. Small fluid collection with subtle rim enhancement in the subcutaneous fat in the right lower quadrant/pelvis on series 2:15 measures 3.4 x 1.6 cm and is slightly larger compared to the prior. Stranding in the subcutaneous fat, right lower quadrant/upper pelvis mesentery and in the right abdominal musculature suggest inflammatory or postinflammatory changes. No Mild wall thickening of the right colon may be reactive or suggest mild colitis. No extravasation contrast identified. [id number] stool in the remainder of the colon without wall thickening. Terminal ileum appears mildly thick wall. Thin tubular structure with contrast off the cecum may represent a normal appearing appendix. Small bowel loops appear relatively unremarkable. Mesenteric stranding identified. No adenopathy. No mass. Moderate anasarca noted. Fat containing umbilical hernia. PELVIS: Irregular fluid collection in the left pelvis on series 2:144 measures 2.2 x 3.2 cm and is new compared to the prior. Previously seen percutaneous drainage catheter has been removed. Uterus is not clearly identified. Suspect prior hysterectomy. No pelvic mass or adenopathy. Few prominent bilateral inguinal lymph nodes are unchanged. Slightly mild bladder wall thickening with stranding may represent reactive cystitis. Previously-seen right functional adnexal cyst is no longer present. Bones: No suspicious osseous lesions on this limited examination of the skeleton. Metastatic disease better evaluated with bone scan. Degenerative changes are in the spine. IMPRESSION: Percutaneous drainage catheter with surrounding abscess in the right lower quadrant/upper pelvis is decreased in size compared to the prior. Possibly connected abscess subjacent to the inferior right liver is also decreased compared the prior. Left lower quadrant/upper pelvis subjacent ventral wall abscess is unchanged compared to the prior. Irregular fluid collection in the pelvis may represent new developing or enlarging abscess. Mild wall thickening irregularity of the bladder may represent reactive cystitis. Mild wall thickening of the ascending colon and terminal ileum may recur represent reactive or primary colitis. Right lower quadrant subcutaneous fluid collection may represent a new phlegmon or developing abscess. Differential diagnosis would include complex fluid collection. Surrounding stranding in the soft tissues and musculature may represent inflammatory and postinflammatory changes. A developing fistula is not excluded. Possible gallstones and or sludge within the nondistended gallbladder. No CT evidence for cholecystitis.
--- NOTE | 2018-06-20 15:29 | Event Note ---
Date: 06/20/[address] Castellanos regarding CT scan with postoperative fluid collections with indwelling drains. The fluid collections have significantly decreased in size with the largest residual collection in communication with the existing right lateral drain. Recommend flushing drain BID with 10 mL NS. Orders placed. Recommend keeping patient in an upright position most of the day to assist with drainage. Orders placed. Recommend CT scan on saturday. Orders placed. Based on CT scan on saturday, further drainage can be considered. Discussed with Dr. Castellanos.
[2018-06-20] MEDS: MORPHINE PCA 30MG/30ML IV SCH (17:30)
[2018-06-20] MEDS: AMBIEN PO PRN (22:39)
[2018-06-21] MEDS: TYLENOL PO PRN (06:59)
[2018-06-21] MEDS: MERREM 1,000 MG in NACL 0.9% 100 ML IV SCH ×3 (07:01→22:18)
[2018-06-21] MEDS: MORPHINE PCA 30MG/30ML IV SCH ×2 (07:06→23:09)
--- NOTE | 2018-06-21 09:16 | Progress Note ---
Assessment and Plan A/P Pelvic abscess CT scan show continue pockets but decreasing ID recommneded continue ABX if spike greater than 101 will need to do w/u for fever agian blodd, urine, xray etc will continue to keep in hopsital appreciated IR consult with instrutions to keep upright , flush bid with saline ( so far no drainage overnight) CBC today and repeat CT on Saturday per ID Subjective - Subjective Date of service: 06/21/18 Principal diagnosis: pelvic abscesses Patient reports: appetite normal, voiding normally, pain well controlled Objective - Vital Signs Latest vital signs: Vital Signs Temp Pulse Resp BP Pulse Ox 06/21/18 06:07 100.7 F H 114 H 16 123/76 91 06/21/18 03:30 18 06/20/18 23:30 18 06/20/18 22:17 99.6 F 104 H 18 131/64 94 06/20/18 21:30 18 06/20/18 17:24 100.1 F H 111 H 18 115/67 93 Intake and Output 06/20/18 06/21/18 06/21/18 23:59 07:59 15:59 Intake Total 120 500 Output Total 0 Balance 120 500 Intake: IV 120 Merrem 1,000 mg In NaCl 0 100 .9% 100 ml @ 100 mls/hr IV Q8HR [facility] Rx#:[id number] Right Upper arm 20 Oral 500 Output: Drainage 0 Abdomen 0 Other: Total, Intake Amount 500 Voiding Method Toilet Toilet - Exam Breasts: Present: normal Cardiovascular: Present: Regular rate, Normal S1 Lungs: Present: Clear to auscultation, Normal air movement Abdomen: Present: normal appearance, soft, tenderness, normal bowel sounds. Absent: distention, guarding Vulva: both: normal Extremities: Present: normal Deep Tendon Reflex Grade: Normal +2 Incision: Present: normal
[2018-06-21 15:38] LABS: Hematocrit 32.1 % (30.3-42.9); Hemoglobin 10.3 gm/dl (10.1-14.3); Mean Corpuscular HGB Conc 32 % (30-34); Mean Corpuscular Volume 80 fl (79-97); Platelet Count 684 K/mm3 (140-440); Red Blood Count 4.03 M/mm3 (3.65-5.03); Red Cell Distribution Width 14.3 % (13.2-15.2)
[2018-06-21 15:43] LABS: Mean Corpuscular Hemoglobin 26 pg (28-32)
[2018-06-21 16:46] LABS: Anisocytosis 1+; Basophils % (Manual) 0 % (0.0-1.8); Hypochromasia 1+; Ovalocytes Few; Platelet Estimate Consistent w Auto; Total Cells Counted 100
[2018-06-21] MEDS: AMBIEN PO PRN (22:19)
[2018-06-22] MEDS: MERREM 1,000 MG in NACL 0.9% 100 ML IV SCH ×3 (06:03→22:02)
[2018-06-22] MEDS ORDERED: CATHFLO IV ONE (08:42)
--- NOTE | 2018-06-22 09:24 | Progress Note ---
Assessment and Plan A/P Pelvic abscess CT scan on Saturday ID notified of temp increase will see patient today to make adjustment to care continue to spoike tem 101.6 max will call IR to discuss drainage Subjective - Subjective Date of service: 06/22/18 Principal diagnosis: pelvic abscesses Patient reports: appetite normal, voiding normally, pain well controlled, ambulating normally Objective - Vital Signs Latest vital signs: Vital Signs Temp Pulse Resp BP Pulse Ox 06/22/18 06:47 101.3 F H 114 H 20 115/67 91 06/22/18 01:10 97.6 F 103 H 18 108/58 93 06/21/18 17:17 101.6 F H 122 H 18 129/62 93 06/21/18 11:28 98.5 F 97 H 20 91/44 97 Intake and Output 06/21/18 06/22/18 06/22/18 23:59 07:59 15:59 Intake Total 840 Output Total 5 Balance 835 Intake: IV 120 Merrem 1,000 mg In NaCl 0 100 .9% 100 ml @ 100 mls/hr IV Q8HR [facility] Rx#:[id number] Right Upper arm 20 Oral 720 Output: Drainage 5 Abdomen 5 Other: Total, Intake Amount 360 Voiding Method Toilet # Voids 2 Void 2 - Exam Breasts: Present: normal Cardiovascular: Present: Regular rate, Normal S1 Lungs: Present: Clear to auscultation, Normal air movement Abdomen: Present: normal appearance, soft, tenderness, normal bowel sounds. Absent: distention, guarding Extremities: Present: normal Deep Tendon Reflex Grade: Normal +2 - Labs Labs: Abnormal lab results 06/21/18 Range/Units 14:40 WBC 20.2 H (4.5-11.0) K/mm3 MCH 26 L (28-32) pg Plt Count 684 H (140-440) K/mm3 Seg Neuts % (Manual) 71.0 H (40.0-70.0) % Monocytes % (Manual) 10.0 H (0.0-7.3) % Seg Neutrophils # Man 14.3 H (1.8-7.7) K/mm3 Monocytes # (Manual) 2.0 H (0.0-0.8) K/mm3
--- NOTE | 2018-06-22 10:09 | Event Note ---
Date: 06/22/18 Limited drain output despite flushing and upright positioning per Dr. Perla. Had fevers. Plan for CT tomorrow and subsequent probable drain placement.
[2018-06-22] MEDS: MORPHINE PCA 30MG/30ML IV SCH (15:00)
[2018-06-22] MEDS: D5LR 1,000 ML IV SCH (15:06)
--- NOTE | 2018-06-22 16:01 | Progress Note ---
Assessment and Plan Assessment: 1) Sepsis: still high grade fever and leukocytosis. Etiology most likely intra- abdominal collections. -Urinalysis shows 16 white blood cells but negative leukocyte esterase. -Blood cultures 06/11 and 06/16 both negative 2) Multiple intra-abdominal collections: likely from recent lap-hysterectomy -CT of the abdomen showed multiple fluid collections mainly in the cul-de- sac 6.5 x 6 x 6 cm, bilateral lower quadrants and bilateral gutters, free air -S/P IR drainage on 06/11/2017 which grew Escherichia coli ESBL and Enterococcus Durans -CT 06/15 Suprapubic drain with minimal residual fluid, right lateral peritoneal fluid collection 13x7.5x3 cm and LLQ collection 4.5x1.4 cm -S/P IR drainage on 06/16/2017 which grew ESBL E coli -repeat CT new RLL collection 3) S/P robotic hysterectomy on 05/04/18 Plan: -IR eval may need another drain or drain reposition -f/u repeat blood cx -monitor inpatient fever and leukocytosis -continue meropenem -contact isolation for ESBL -upon discharge will do IV ertapenem 1 g q day for 2 weeks until 06/30/18. Order sent to dependency case manager -PICC line Thank you for your consultation, will follow up with you. Yun Matos MD Infectious Diseases Specialist [facility] ([facility]) M [phone] O [phone] Subjective Date of service: 06/22/18 Principal diagnosis: pelvic abscesses Interval history: Feels better, still right sided abd pain is better, still 102 Microbiology: Blood cultures: 06/11 neg 06/16 neg 06/17 ngtd 06/21 ngtd Urine cultures: Respiratory cultures: Wound cultures: 06/11 ESBL E coli and E durans 06/16 ESBL E coli Current Antimicrobials: Vanco 06/13 Meropenem 06/13 Objective - Exam Narrative Exam: General appearance: Alert in NAD, in pain Eyes: anicteric sclerae, moist conjunctivae; no lid-lag; PERRLA HENT: Atraumatic; oropharynx clear Neck: Trachea midline; supple, no thyromegaly or lymphadenopathy Lungs: CTA CV: RRR, no murmurs Abdomen: Soft, diffusely tender, guarding R >L, right sided drain with minimal serous Extremities: No peripheral edema or extremity lymphadenopathy Skin: Normal temperature, turgor and texture; no rash, ulcers or subcutaneous nodules Psych: Appropriate affect, alert and oriented to person, place and time. Neuro: alert and oriented x 3. Moving all extermities Lines: - Constitutional Vitals: Vital Signs Temp Pulse Resp BP Pulse Ox 98.9 F 108 H 18 121/72 95 06/22/18 11:52 06/22/18 11:52 06/22/18 11:52 06/22/18 11:52 06/22/18 11:52 Temperature -Last 24 Hours Temperature 98.9 F Temperature 101.3 F Temperature 97.6 F Temperature 101.6 F - Labs CBC & Chem 7: 06/21/18 14:40 06/12/18 05:19 Labs: Abnormal lab results 06/21/18 Range/Units 14:40 Seg Neuts % (Manual) 71.0 H (40.0-70.0) % Monocytes % (Manual) 10.0 H (0.0-7.3) % Seg Neutrophils # Man 14.3 H (1.8-7.7) K/mm3 Monocytes # (Manual) 2.0 H (0.0-0.8) K/mm3
[2018-06-22] MEDS: TYLENOL PO PRN (18:45)
[2018-06-22] MEDS: AMBIEN PO PRN (23:05)
[2018-06-23] MEDS: MERREM 1,000 MG in NACL 0.9% 100 ML IV SCH ×3 (05:29→21:26)
--- NOTE | 2018-06-23 08:46 | Progress Note ---
Assessment and Plan - Patient Problems (1) Abdominal pain Current Visit: Yes Status: Acute (2) Abscess Current Visit: Yes Status: Acute Plan to address problem: findings of a new fluid collection scheduled for CT guided drainage today (3) Tachycardia Current Visit: Yes Status: Acute Subjective - Subjective Date of service: 06/23/18 Principal diagnosis: pelvic abscesses Interval history: Patient continues to have temp spikes despite aggressive IV antibiotic therapy. Leukocytosis is increasing. Patient is scheduled for CT drainage of new pelvic collection. Prognosis discussed with patient. Encouraged her to stay positive. Currently no indication for surgical intervention. No findings of oral contrast spillage into peritoneal cavity. ferry terminal agent plan to complete antibiotics at home once leukocytosis and elevated temps improve. Patient reports: pain poorly controlled Objective - Vital Signs Latest vital signs: Vital Signs Temp Pulse Resp BP Pulse Ox 06/23/18 06:26 101.9 F H 124 H 20 123/69 88 06/23/18 00:25 99.0 F 113 H 16 116/64 91 06/22/18 17:56 103.0 F H 125 H 22 123/63 90 06/22/18 11:52 98.9 F 108 H 18 121/72 95 Intake and Output 06/22/18 06/23/18 06/23/18 22:59 06:59 14:59 Intake Total 580 340 Balance 580 340 Intake: IV 220 100 Merrem 1,000 mg In NaCl 0 200 100 .9% 100 ml @ 100 mls/hr IV Q8HR [facility] Rx#:[id number] Right Upper arm 20 Oral 360 240 Other: Total, Intake Amount 360 240 Voiding Method Toilet Toilet # Voids 2 2 Void 2 2 # Bowel Movements 0 0 Weight 90.9 kg - Exam Abdomen: Present: soft
[2018-06-23 11:39] LABS: Basophils # (Auto) 0.1 K/mm3 (0.0-0.1); Basophils % (Auto) 0.8 % (0.0-1.8); Eosinophils # (Auto) 0.1 K/mm3 (0.0-0.4); Eosinophils % (Auto) 0.7 % (0.0-4.3); Hematocrit 26.7 % (30.3-42.9); Hemoglobin 8.9 gm/dl (10.1-14.3); Lymphocytes # (Auto) 2.7 K/mm3 (1.2-5.4); Lymphocytes % (Auto) 16.9 % (13.4-35.0); Mean Corpuscular HGB Conc 33 % (30-34); Mean Corpuscular Hemoglobin 26 pg (28-32); Mean Corpuscular Volume 78 fl (79-97); Monocytes # (Auto) 1.4 K/mm3 (0.0-0.8); Platelet Count 614 K/mm3 (140-440); Red Blood Count 3.41 M/mm3 (3.65-5.03); Red Cell Distribution Width 14.3 % (13.2-15.2)
[2018-06-23] MEDS ORDERED: XYLOCAINE 1% 20 mL ONE (12:48)
--- NOTE | 2018-06-23 13:43 | Cat Scan Report ---
CT ABDOMEN PELVIS WITH CONTRAST: HISTORY: Followup abnormal collection. COMPARISON: 06/20/18. TECHNIQUE: Helical CT in 1.25mm intervals following IV contrast. Sagittal and coronal reconstructions. FINDINGS: Lung bases: Small left pleural effusion and small pericardial effusion are unchanged. Moderate right pleural effusion has increased by 25%. Liver: Normal. Biliary system: Normal. Pancreas: Normal. Spleen: Normal. Kidneys/ureters/bladder: Few scattered renal cysts are unchanged. The kidneys and collecting systems are within normal limits otherwise. Adrenal glands: Normal. Aorta: Normal. Intestines: Within normal limits given no oral contrast is present. Appendix: Not identified. Pelvic viscera: Hysterectomy. Ascites: None. Adenopathy: None. Musculoskeletal: A fluid collection in the right side of the abdomen contains a percutaneous catheter which is unchanged in position. The collection has decreased by 25-50% since the comparison exam. There is a second collection in the left lower quadrant measuring 3.8 x 1.6 cm in axial dimensions which is essentially unchanged. No additional fluid collections are identified. IMPRESSION: The fluid collection in the right lower quadrant containing the drain has decreased by 25-50%. A smaller collection in the left lower quadrant is unchanged.
[2018-06-23] MEDS ORDERED: VERSED IV SCH (13:54)
[2018-06-23] MEDS ORDERED: VERSED IV ONE (13:55)
[2018-06-23] MEDS ORDERED: SUBLIMAZE ONE (13:55)
[2018-06-23] MEDS ORDERED: SUBLIMAZE IV ONE (15:03)
--- NOTE | 2018-06-23 15:42 | Cat Scan Report ---
Exam: Left abdominal aspiration of fluid collection, placement of a right abdominal drainage catheter Clinical indication: Patient with a history of hysterectomy who developed postoperative fluid and abdominal pain. Date: 06/23/2018 Procedure: Following an explanation of the risks, benefits and alternatives; written informed consent was obtained. The patient was brought to the CT suite and placed in spine position on the CT gantry. Initial entertainer & comic images of the abdomen were performed. The patient's previously noted left lower abdominal wall fluid collection is noted to be somewhat smaller on the CT scan performed at the time of her procedure. An appropriate access site was chosen overlying this fluid collection and the patient's skin was sterilely prepped and draped. 1% lidocaine was used for anesthesia. Using intermittent CT guidance, a 15 cm in engaged for her needle was advanced into the fluid collection. There appeared to be thick exudative material within the fluid collection. No free flowing pus was identified. At this point, aspiration of the left rim-enhancing fluid collection was abandoned. The patient's right indwelling drainage catheter and skin were prepped and draped in usual sterile fashion. 1% lidocaine was used for anesthesia. Saline was injected through the previously placed drainage catheter and additional imaging obtained. This did not appear to demonstrate a communication with the fluid collection more superiorly along the lateral aspect of the abdominal wall. A guidewire was advanced through the drainage catheter and preferentially went distally. The decision was made therefore to obtain additional access to this fluid. Additional entertainer & comic images the abdomen was performed an appropriate access site chosen along the right lateral abdominal wall. The skin was sterilely prepped and draped. 1% lidocaine was used for anesthesia. A 15 cm 18-gauge trocar needle was advanced into the fluid collection. There is scant drainage the serous fluid from the fluid collection. A 0.035 guidewire was then advanced through the needle and coiled within the fluid collection. Following serial dilation of the guidewire, an 8 [place] pigtail drainage catheter was advanced over the guidewire into the fluid collection. The guide wire was removed and the catheter tip positioned in the central aspect of the fluid. A total of 5 additional ML's of fluid was then aspirated. Post procedure imaging demonstrated a repositioning of the drainage catheter within the central aspect of this fluid collection. The catheter was securely fastened skin surface using 2-0 Ethilon suture and the cervix twice. The catheter was then placed to CONOR bulb drainage. The patient tolerated the procedure well. There were no immediate post procedure complications. Conscious sedation was performed under the guidance of radiologic nursing. Continuous cardiopulmonary monitoring was utilized. Impression: 1) Aspiration of left abdominal fluid collection demonstrating thick exudative material. New drainage placement in the right fluid collection with only scant drainage. Would suspect that these abscesses are beginning to desiccate.
[2018-06-23] MEDS: TYLENOL PO PRN (16:29)
--- NOTE | 2018-06-23 17:41 | Progress Note ---
Assessment and Plan - Patient Problems (1) Abdominal pain Current Visit: Yes Status: Acute (2) Abscess Current Visit: Yes Status: Acute (3) Tachycardia Current Visit: Yes Status: Acute Subjective - Subjective Date of service: 06/23/18 Principal diagnosis: pelvic abscesses Interval history: will discuss further care of plan with Dr Vela Objective - Vital Signs Latest vital signs: Vital Signs Temp Pulse Pulse Pulse Resp Resp Resp 06/23/18 15:28 106 H 30 H 06/23/18 15:23 106 H 30 H 06/23/18 15:19 113 H 30 H 06/23/18 15:14 104 H 25 H 06/23/18 15:09 110 H 23 06/23/18 15:04 113 H 30 H 06/23/18 15:00 111 H 35 H 06/23/18 14:55 108 H 30 H 06/23/18 14:52 104 H 30 H 06/23/18 14:48 21 06/23/18 14:46 108 H 30 H 06/23/18 14:43 108 H 30 H 06/23/18 14:40 109 H 30 H 06/23/18 14:37 111 H 30 H 06/23/18 14:34 108 H 28 H 06/23/18 14:31 109 H 30 H 06/23/18 14:28 110 H 30 H 06/23/18 14:25 110 H 28 H 06/23/18 14:22 112 H 30 H 06/23/18 14:19 112 H 34 H 06/23/18 14:10 111 H 30 H 06/23/18 12:07 101.6 F H 119 H 20 06/23/18 06:26 101.9 F H 124 H 20 06/23/18 00:25 99.0 F 113 H 16 06/22/18 17:56 103.0 F H 125 H 22 BP BP BP Pulse Ox Pulse Ox Pulse Ox 06/23/18 15:28 125/65 97 06/23/18 15:23 126/65 97 06/23/18 15:19 130/78 98 06/23/18 15:14 123/79 90 06/23/18 15:09 129/82 90 06/23/18 15:04 136/73 95 06/23/18 15:00 166/63 95 06/23/18 14:55 136/77 98 06/23/18 14:52 133/62 100 06/23/18 14:48 06/23/18 14:46 136/69 97 06/23/18 14:43 138/75 97 06/23/18 14:40 129/74 100 06/23/18 14:37 136/74 99 06/23/18 14:34 128/71 100 06/23/18 14:31 122/70 96 06/23/18 14:28 124/75 99 06/23/18 14:25 133/70 99 06/23/18 14:22 134/70 98 06/23/18 14:19 130/75 98 06/23/18 14:10 125/75 98 06/23/18 12:07 113/70 92 06/23/18 06:26 123/69 88 06/23/18 00:25 116/64 91 06/22/18 17:56 123/63 90 Intake and Output 06/23/18 06/23/18 06/23/18 06:59 14:59 22:59 Intake Total 440 20 Output Total 2 Balance 440 18 Intake: IV 200 20 Merrem 1,000 mg In NaCl 0 200 .9% 100 ml @ 100 mls/hr IV Q8HR [facility] Rx#:[id number] Right Upper arm 20 Oral 240 0 Output: Drainage 2 Abdomen 2 Other: Intake, Other Source Saline Solution Total, Intake Amount 240 0 Total, Output Amount 2 Voiding Method Toilet Toilet # Voids 2 Void 2 # Bowel Movements 0 Weight 90.9 kg 90.9 kg Patient Weight 06/24/18 06:59 Weight 90.9 kg - Labs Labs: Abnormal lab results 06/23/18 Range/Units 11:30 WBC 15.9 H (4.5-11.0) K/mm3 RBC 3.41 L (3.65-5.03) M/mm3 Hgb 8.9 L (10.1-14.3) gm/dl Hct 26.7 L (30.3-42.9) % MCV 78 L (79-97) fl MCH 26 L (28-32) pg Plt Count 614 H (140-440) K/mm3 [place] % (Auto) 9.0 H (0.0-7.3) % [place] # 1.4 H (0.0-0.8) K/mm3 Seg Neutrophils % 72.6 H (40.0-70.0) % Seg Neutrophils # 11.5 H (1.8-7.7) K/mm3
--- NOTE | 2018-06-23 17:44 | Progress Note ---
Assessment and Plan Assessment: 1) Sepsis: still high grade fever 103 and leukocytosis. Etiology most likely intra-abdominal collections. -Urinalysis shows 16 white blood cells but negative leukocyte esterase. -Blood cultures 06/11 and 06/16 both negative 2) Multiple intra-abdominal collections: likely from recent lap-hysterectomy -CT of the abdomen showed multiple fluid collections mainly in the cul-de- sac 6.5 x 6 x 6 cm, bilateral lower quadrants and bilateral gutters, free air -S/P IR drainage on 06/11/2017 which grew Escherichia coli ESBL and Enterococcus Durans -CT 06/15 Suprapubic drain with minimal residual fluid, right lateral peritoneal fluid collection 13x7.5x3 cm and LLQ collection 4.5x1.4 cm -S/P IR drainage on 06/16/2017 which grew ESBL E coli -repeat CT new RLL collection -drain reposition today 3) S/P robotic hysterectomy on 05/04/18 Plan: -consider OR exploration - failing meropenem x 7 days and multiple drain placement -f/u repeat blood cx -monitor inpatient fever and leukocytosis -continue meropenem D7 -add zyvox -contact isolation for ESBL Discussed with Dr Castellanos Thank you for your consultation, will follow up with you. Yun Matos MD Infectious Diseases Specialist [facility] M [phone] O [phone] Subjective Date of service: 06/23/18 Principal diagnosis: pelvic abscesses Interval history: Feels better, still right sided abd pain is better, still 101.9-103 Microbiology: Blood cultures: 06/11 neg 06/16 neg 06/17 ngtd 06/21 ngtd Urine cultures: Respiratory cultures: Wound cultures: 06/11 ESBL E coli and E durans 06/16 ESBL E coli Current Antimicrobials: Vanco 06/13 Meropenem 06/13 Objective - Exam Narrative Exam: General appearance: Alert in NAD, in pain Eyes: anicteric sclerae, moist conjunctivae; no lid-lag; PERRLA HENT: Atraumatic; oropharynx clear Neck: Trachea midline; supple, no thyromegaly or lymphadenopathy Lungs: CTA CV: RRR, no murmurs Abdomen: Soft, diffusely tender, guarding R >L, right sided drain with minimal serous Extremities: No peripheral edema or extremity lymphadenopathy Skin: Normal temperature, turgor and texture; no rash, ulcers or subcutaneous nodules Psych: Appropriate affect, alert and oriented to person, place and time. Neuro: alert and oriented x 3. Moving all extermities Lines: - Constitutional Vitals: Vital Signs Temp Pulse Resp BP Pulse Ox 101.6 F H 106 H 30 H 125/65 97 06/23/18 12:07 06/23/18 15:28 06/23/18 15:28 06/23/18 15:28 06/23/18 15:28 Temperature -Last 24 Hours Temperature 101.6 F Temperature 101.9 F Temperature 99.0 F Temperature 103.0 F - Labs CBC & Chem 7: 06/23/18 11:30 06/12/18 05:19 Labs: Abnormal lab results 06/23/18 Range/Units 11:30 WBC 15.9 H (4.5-11.0) K/mm3 RBC 3.41 L (3.65-5.03) M/mm3 Hgb 8.9 L (10.1-14.3) gm/dl Hct 26.7 L (30.3-42.9) % MCV 78 L (79-97) fl MCH 26 L (28-32) pg Plt Count 614 H (140-440) K/mm3 [place] % (Auto) 9.0 H (0.0-7.3) % [place] # 1.4 H (0.0-0.8) K/mm3 Seg Neutrophils % 72.6 H (40.0-70.0) % Seg Neutrophils # 11.5 H (1.8-7.7) K/mm3
[2018-06-23] MEDS: D5LR 1,000 ML IV SCH (18:38)
[2018-06-23] MEDS: MORPHINE PCA 30MG/30ML IV SCH (18:42)
[2018-06-23] MEDS: ZYVOX 600MG/300ML 600 MG/300 ML BAG IV SCH (23:33)
[2018-06-23] MEDS: AMBIEN PO PRN (23:46)
[2018-06-24] MEDS: MERREM 1,000 MG in NACL 0.9% 100 ML IV SCH ×3 (07:29→22:00)
--- NOTE | 2018-06-24 08:51 | Progress Note ---
Assessment and Plan - Patient Problems (1) Abdominal pain Current Visit: Yes Status: Acute Plan to address problem: will discuss case with general surgery to determine the need for operative management of infection increase ambulation and activity in room request that nursing assist patient to shower (2) Abscess Current Visit: Yes Status: Acute (3) Tachycardia Current Visit: Yes Status: Acute Subjective - Subjective Date of service: 06/24/18 Principal diagnosis: pelvic abscesses Interval history: The patient projects feeling discouraged. No significant change in symptoms today. Zyvox added last night to antibiotic therapy. Patient encouraged to increase activity in her room. She is tolerating her diet reports decreased appetite. Denies any nausea or vomiting. She still continues to want to use the TRAFFIC MONITOR SPECIALIST for pain secondary to her concern about being able to receive meds from nursing in a timely fashion. Patient reports: appetite normal Objective - Vital Signs Latest vital signs: Vital Signs Temp Pulse Pulse Pulse Resp Resp Resp 06/24/18 06:28 101.5 F H 122 H 18 06/24/18 00:25 98.2 F 98 H 16 06/23/18 23:00 18 06/23/18 18:21 99.9 F H 111 H 20 06/23/18 15:28 106 H 30 H 06/23/18 15:23 106 H 30 H 06/23/18 15:19 113 H 30 H 06/23/18 15:14 104 H 25 H 06/23/18 15:09 110 H 23 06/23/18 15:04 113 H 30 H 06/23/18 15:00 111 H 35 H 06/23/18 14:55 108 H 30 H 06/23/18 14:52 104 H 30 H 06/23/18 14:48 21 06/23/18 14:46 108 H 30 H 06/23/18 14:43 108 H 30 H 06/23/18 14:40 109 H 30 H 06/23/18 14:37 111 H 30 H 06/23/18 14:34 108 H 28 H 06/23/18 14:31 109 H 30 H 06/23/18 14:28 110 H 30 H 06/23/18 14:25 110 H 28 H 06/23/18 14:22 112 H 30 H 06/23/18 14:19 112 H 34 H 06/23/18 14:10 111 H 30 H 06/23/18 12:07 101.6 F H 119 H 20 BP BP BP Pulse Ox Pulse Ox Pulse Ox 06/24/18 06:28 115/70 91 06/24/18 00:25 102/64 91 06/23/18 23:00 06/23/18 18:21 117/70 88 06/23/18 15:28 125/65 97 06/23/18 15:23 126/65 97 06/23/18 15:19 130/78 98 06/23/18 15:14 123/79 90 06/23/18 15:09 129/82 90 06/23/18 15:04 136/73 95 06/23/18 15:00 166/63 95 06/23/18 14:55 136/77 98 06/23/18 14:52 133/62 100 06/23/18 14:48 06/23/18 14:46 136/69 97 06/23/18 14:43 138/75 97 06/23/18 14:40 129/74 100 06/23/18 14:37 136/74 99 06/23/18 14:34 128/71 100 06/23/18 14:31 122/70 96 06/23/18 14:28 124/75 99 06/23/18 14:25 133/70 99 06/23/18 14:22 134/70 98 06/23/18 14:19 130/75 98 06/23/18 14:10 125/75 98 06/23/18 12:07 113/70 92 Intake and Output 06/23/18 06/24/18 06/24/18 22:59 06:59 14:59 Intake Total 120 360 480 Balance 120 360 480 Intake: IV 120 Merrem 1,000 mg In NaCl 0 100 .9% 100 ml @ 100 mls/hr IV Q8HR [facility] Rx#:[id number] Right Upper arm 20 Oral 360 480 Other: Total, Intake Amount 360 480 Voiding Method Toilet Toilet # Voids 3 3 Void 3 3 # Bowel Movements 0 0 Weight 90.9 kg - Labs Labs: Abnormal lab results 06/23/18 Range/Units 11:30 WBC 15.9 H (4.5-11.0) K/mm3 RBC 3.41 L (3.65-5.03) M/mm3 Hgb 8.9 L (10.1-14.3) gm/dl Hct 26.7 L (30.3-42.9) % MCV 78 L (79-97) fl MCH 26 L (28-32) pg Plt Count 614 H (140-440) K/mm3 [place] % (Auto) 9.0 H (0.0-7.3) % [place] # 1.4 H (0.0-0.8) K/mm3 Seg Neutrophils % 72.6 H (40.0-70.0) % Seg Neutrophils # 11.5 H (1.8-7.7) K/mm3
[2018-06-24] MEDS: ZYVOX 600MG/300ML 600 MG/300 ML BAG IV SCH ×2 (10:00→22:02)
[2018-06-24] MEDS: MORPHINE PCA 30MG/30ML IV SCH (12:12)
--- NOTE | 2018-06-24 12:37 | Consultation ---
History of Present Illness Consult date: 06/24/18 Chief complaint: abdominal abscess - History of present illness History of present illness: 47 yo F with hx of robotic assisted hysterectomy, bilateral salpingectomy, right ovarian cystectomy, lysis of adhesions on 06/02/[address] Talamantes. She presents to hospital on 06/09/18 with c/o not feeling well and abdominal pain. She was found to have sepsis and intraabominal abscesses on Ct scan A/P. She underwent percutaneous drainage of several different collections by interventional radiology. Ct scans did not reveal extravasation of oral contrast. Pt complains of right sided abdominal discomfort intermittently. This does not radiate. She had percutaneous drain placed yesterday into right sided subhepatic collection yesterday which revealed thicker fluid. She has been having persistent fevers despite being on multiple antibiotics. Fluid cultures grew ecoli and enterococcus. She is tolerating a regular diet. She is having formed, soft bowel movements and passing flatus. She is ambulating and urinating on her own. Past History Past Medical History: other (fibroids) Past Surgical History: Other (robotic hysterectomy, bilateral salpingectomy, lysis of adhesions, right ovarian cystectomy) Social history: Family history: no significant family history Medications and Allergies Allergies Allergy/AdvReac Type Severity Reaction Status Date / Time No Known Allergies Allergy Unverified 05/30/18 08:21 Home Medications Medication Instructions Recorded Confirmed Last Taken Type HYDROcodone/APAP 5-325 [[place] 1 each PO Q6HR PRN #14 tablet 05/08/18 06/14/18 Unknown Rx 5/325] Acyclovir [Zovirax] 400 mg PO DAILY 05/30/18 06/14/18 06/10/18 08:00 History traZODone [Desyrel] 100 mg PO QHS 05/30/18 06/14/18 06/03/18 History Docusate Sodium [Colace] 100 mg PO BID PRN #60 capsule 06/05/18 06/14/18 08:00 Rx 100 Ibuprofen [Motrin] 800 mg PO Q8HR PRN #60 tablet 06/05/18 06/14/18 Unknown Rx Oxycodone HCl/Acetaminophen 1 each PO Q6HR PRN #45 tablet 06/05/18 06/14/18 Unknown Rx [Percocet 7.5/325 mg] Oxycodone HCl/Acetaminophen 1 each PO Q6HR PRN #30 tablet 06/20/18 Unknown Rx [Percocet 10/325 mg] Active Meds: Active Medications Acetaminophen (Tylenol) 650 mg PO Q4H PRN PRN Reason: Pain, Mild (1-3) Last Admin: 06/23/18 16:29 Dose: 650 mg Meropenem 1,000 mg/ Sodium (Chloride) 100 mls @ 100 mls/hr IV Q8HR [facility] Stop: 06/30/18 23:59 Last Admin: 06/24/18 07:29 Dose: Not Given Dextrose/Lactated Ringer's (D5lr) 1,000 mls @ 42 mls/hr IV DIRECT [facility] Last Admin: 06/23/18 18:38 Dose: 42 mls/hr Linezolid (Zyvox 600mg/300ml) 600 mg in 300 mls @ 300 mls/hr IV Q12HR [facility]; Protocol Last Admin: 06/23/18 23:33 Dose: 300 mls/hr Magnesium Hydroxide (Milk Of Magnesia) 30 ml PO QDAY PRN PRN Reason: Constipation Last Admin: 06/14/18 12:07 Dose: 30 ml Morphine Sulfate (Morphine Lens Gauger 30mg/30ml) 0 mg IV DIRECT [facility]; Protocol Last Admin: 06/24/18 12:12 Dose: 30 mg Naloxone HCl (Narcan 0.4 Mg/1 Ml) 0.1 mg IV Q2MIN PRN PRN Reason: Res Rate </= 8 or 02 SAT < 92% Ondansetron HCl (Zofran) 4 mg IV Q8H PRN PRN Reason: N/V unrelieved by Reglan Oxycodone/Acetaminophen (Percocet 5/325) 2 tab PO Q4H PRN PRN Reason: Pain, Moderate (4-6) Last Admin: 06/15/18 21:27 Dose: 2 tab Simethicone (Mylicon) 80 mg PO Q6H PRN PRN Reason: Gas pain Last Admin: 06/13/18 20:58 Dose: 80 mg Zolpidem Tartrate (Ambien) 10 mg PO QHS PRN PRN Reason: Insomnia Last Admin: 06/23/18 23:46 Dose: 10 mg Review of Systems All systems: negative (10 pt ROS performed and negative except for that listed in HPI) Exam Vital Signs Temp Pulse Resp BP Pulse Ox 100.0 F H 108 H 20 115/47 98 06/10/18 18:35 06/10/18 18:35 06/10/18 18:35 06/10/18 18:35 06/10/18 18:35 Narrative exam: Gen: AAOx3. NAD ENT: no scleral icterus or conjunctival pallor CV: S1, S2+ Resp: no audible wheezes Abd: soft, ND, mild RUQ TTP with induration of skin. RUQ drain with serous drainage. surgical incisions c/d/i Ext: no c/c/e Results - Labs 06/24/18 13:35 06/12/18 05:19 - Imaging CT scan - abdomen: report reviewed, image reviewed CT scan - pelvis: report reviewed, image reviewed Assessment and Plan 47 yo F with sepsis s/p robotic hysterectomy on 06/02/18, post op intraabdominal abscesses s/p drainage Ct scans A/P reviewed since admission - multiple intraabdominal abscess - subhepatic, interloop, and pelvic. s/p drainage by IR - cultures growing enterococcus and ecoli Suspect possible bowel injury at time of index procedure. However, CT scan now does not show extravasation of oral contrast, which likely means the injury has sealed. Persistent fevers likely secondary to multiple small intraabdominal abscesses and inflammation, not amenable to percutaneous drainage. Plan: 1. c/w abx per ID 2. serial abdominal exams 3. soft diet 4. barium enema to r/o possible continued bowel leak 5. prn pain control 6. RUQ drain - monitor output 7. monitor WBC - trending down, fevers I discussed the case with Dr. Talamantes. At this point, the patient is 3 weeks post op and has severe inflammation and multiple small intraabdominal abscesses. This is not an ideal time to explore the abdomen due inflammation which leads to high risk of potential bowel injury during lysis of adhesions, etc. The patient is hemodynamically stable at this time, tolerating a diet and having bowel function. Would continue to monitor clinical status at this time. I discussed the plan with the patient and her mother at the bedside in great detail. We discussed the findings of the most recent CT scan. The patient understands the plan and all questions were answered. She refuses barium enema at this time. Thank you. Please call with questions or concerns.
[2018-06-24 14:39] LABS: Hematocrit 24.2 % (30.3-42.9); Hemoglobin 7.9 gm/dl (10.1-14.3); Mean Corpuscular Volume 79 fl (79-97); Red Blood Count 3.07 M/mm3 (3.65-5.03)
[2018-06-24 14:40] LABS: Lymphocytes % (Auto) 15.2 % (13.4-35.0); Mean Corpuscular HGB Conc 33 % (30-34); Mean Corpuscular Hemoglobin 26 pg (28-32); Monocytes % (Auto) 10.5 % (0.0-7.3); Platelet Count 529 K/mm3 (140-440); Red Cell Distribution Width 14.7 % (13.2-15.2)
[2018-06-24 14:41] LABS: Basophils # (Auto) 0.1 K/mm3 (0.0-0.1); Basophils % (Auto) 0.5 % (0.0-1.8); Eosinophils # (Auto) 0.1 K/mm3 (0.0-0.4); Lymphocytes # (Auto) 1.9 K/mm3 (1.2-5.4); Monocytes # (Auto) 1.3 K/mm3 (0.0-0.8)
--- NOTE | 2018-06-24 21:41 | Progress Note ---
Assessment and Plan Assessment: 1) Sepsis: fever and leukocytosis better. Etiology most likely intra- abdominal collections. -Urinalysis shows 16 white blood cells but negative leukocyte esterase. -Blood cultures 06/11 and 06/16 both negative 2) Multiple intra-abdominal collections: likely from recent lap-hysterectomy -CT of the abdomen showed multiple fluid collections mainly in the cul-de- sac 6.5 x 6 x 6 cm, bilateral lower quadrants and bilateral gutters, free air -S/P IR drainage on 06/11/2017 which grew Escherichia coli ESBL and Enterococcus Durans -CT 06/15 Suprapubic drain with minimal residual fluid, right lateral peritoneal fluid collection 13x7.5x3 cm and LLQ collection 4.5x1.4 cm -S/P IR drainage on 06/16/2017 which grew ESBL E coli -repeat CT new RLL collection -S/P drain reposition on 06/23 3) S/P robotic hysterectomy on 05/04/18 Plan: -monitor inpatient fever and leukocytosis, clinically improving -continue meropenem D8 -continue zyvox D2 -contact isolation for ESBL Thank you for your consultation, will follow up with you. Yun Matos MD Infectious Diseases Specialist [facility] M [phone] O [phone] Subjective Date of service: 06/24/18 Principal diagnosis: pelvic abscesses Interval history: Feels better, still right sided abd pain but better, still 101 Microbiology: Blood cultures: 06/11 neg 06/16 neg 06/17 ngtd 06/21 ngtd Urine cultures: Respiratory cultures: Wound cultures: 06/11 ESBL E coli and E durans 06/16 ESBL E coli 06/23 pending Current Antimicrobials: zyvox 06/23 Meropenem 06/13 Objective - Exam Narrative Exam: General appearance: Alert in NAD, in pain Eyes: anicteric sclerae, moist conjunctivae; no lid-lag; PERRLA HENT: Atraumatic; oropharynx clear Neck: Trachea midline; supple, no thyromegaly or lymphadenopathy Lungs: CTA CV: RRR, no murmurs Abdomen: Soft, diffusely tender, guarding R >L, right sided drain with minimal serous Extremities: No peripheral edema or extremity lymphadenopathy Skin: Normal temperature, turgor and texture; no rash, ulcers or subcutaneous nodules Psych: Appropriate affect, alert and oriented to person, place and time. Neuro: alert and oriented x 3. Moving all extermities Lines: - Constitutional Vitals: Vital Signs Temp Pulse Resp BP Pulse Ox 100.0 F H 115 H 28 H 108/62 91 06/24/18 17:51 06/24/18 17:51 06/24/18 17:51 06/24/18 17:51 06/24/18 17:51 Temperature -Last 24 Hours Temperature 100.0 F Temperature 99.2 F Temperature 101.5 F Temperature 98.2 F - Labs CBC & Chem 7: 06/24/18 13:35 06/12/18 05:19 Labs: Abnormal lab results 06/24/18 Range/Units 13:35 WBC 12.5 H (4.5-11.0) K/mm3 RBC 3.07 L (3.65-5.03) M/mm3 Hgb 7.9 L (10.1-14.3) gm/dl Hct 24.2 L (30.3-42.9) % MCH 26 L (28-32) pg Plt Count 529 H (140-440) K/mm3 [place] % (Auto) 10.5 H (0.0-7.3) % [place] # 1.3 H (0.0-0.8) K/mm3 Seg Neutrophils % 72.8 H (40.0-70.0) % Seg Neutrophils # 9.1 H (1.8-7.7) K/mm3
[2018-06-24] MEDS: D5LR 1,000 ML IV SCH (22:30)
[2018-06-25] MEDS: TYLENOL PO PRN (01:33)
[2018-06-25] MEDS: MERREM 1,000 MG in NACL 0.9% 100 ML IV SCH ×2 (06:00→14:30)
[2018-06-25] MEDS: ZYVOX 600MG/300ML 600 MG/300 ML BAG IV SCH (09:53)
--- NOTE | 2018-06-25 10:28 | Progress Note ---
Assessment and Plan - Patient Problems (1) Abdominal pain Current Visit: Yes Status: Acute (2) Abscess Current Visit: Yes Status: Acute Plan to address problem: demonstrating clinical improvement would recommend sending patient home today and continue IV antibiotics with home health believe patient would demonstrate better improvement with increased activity at home will consult with Dr. Vela (3) Tachycardia Current Visit: Yes Status: Acute Subjective - Subjective Date of service: 06/25/18 Principal diagnosis: pelvic abscesses Interval history: The patient appears and looks much better today despite the temp spike last night. She is currently afebrile. She still continues to tolerate her regular diet. She reports she did not use her SASH REPAIRER at all last night and today. The patient is attempting to ambulate more in the room. She has also had improvement in her leukocytosis. H/H has had slight decrease but there is no indication that the patient is having active bleeding. Patient reports: appetite normal, voiding normally, pain well controlled Objective - Vital Signs Latest vital signs: Vital Signs Temp Pulse Resp Resp BP Pulse Ox 06/25/18 06:49 98.6 F 102 H 16 112/73 95 06/25/18 01:33 20 06/25/18 01:18 99.9 F H 114 H 16 122/66 97 06/24/18 22:34 101.0 F H 121 H 19 105/56 87 06/24/18 22:00 20 20 06/24/18 17:51 100.0 F H 115 H 28 H 108/62 91 06/24/18 12:20 99.2 F 28 H 120/72 Intake and Output 06/24/18 06/25/18 06/25/18 22:59 06:59 14:59 Intake Total 1360 1650 Balance 1360 1650 Intake: IV 1120 300 D5lr 1,000 ml @ 42 mls/hr 1000 IV DIRECT [facility] Rx#: [id number] Merrem 1,000 mg In NaCl 0 100 .9% 100 ml @ 100 mls/hr IV Q8HR [facility] Rx#:[id number] Right Upper arm 20 ZYVOX 600MG/300ML 600 mg 300 In 300 ml @ 300 mls/hr IV Q12HR [facility] Rx#:[id number] Oral 240 1350 Other: Total, Intake Amount 240 500 Voiding Method Toilet Toilet # Voids Void 1 2 # Bowel Movements 0 0 - Exam Abdomen: Present: soft - Labs Labs: Abnormal lab results 06/24/18 Range/Units 13:35 WBC 12.5 H (4.5-11.0) K/mm3 RBC 3.07 L (3.65-5.03) M/mm3 Hgb 7.9 L (10.1-14.3) gm/dl Hct 24.2 L (30.3-42.9) % MCH 26 L (28-32) pg Plt Count 529 H (140-440) K/mm3 [place] % (Auto) 10.5 H (0.0-7.3) % [place] # 1.3 H (0.0-0.8) K/mm3 Seg Neutrophils % 72.8 H (40.0-70.0) % Seg Neutrophils # 9.1 H (1.8-7.7) K/mm3
[2018-06-25] MEDS ORDERED: MOTRIN PO PRN (10:35)
[2018-06-25] MEDS ORDERED: PERCOCET 5/325 PO PRN ×2 (10:35→10:52)
--- NOTE | 2018-06-25 12:17 | Progress Note ---
Assessment and Plan 47 yo F with sepsis s/p robotic hysterectomy on 06/02/18, post op intraabdominal abscesses s/p drainage Plan: 1. c/w abx per ID 2. D/W ID - fevers may be drug related. WBC trending down and patient clinically stable 3. soft diet 4. prn PO pain control 5. RUQ drain - monitor output 6. ok to dc home from general surgery standpoint. Outpatient [facility] follow up with repeat imaging in 2 weeks Thank you. Please call with questions or concerns. Subjective Date of service: 06/25/18 Narrative: Pt seen and examined. Feels tired because she could not sleep last night. No complaints otherwise. Tolerating diet, no n/v. + BM. She stopped the ANIMAL SURGEON last night. States abdominal discomfort is minimal. Objective Vital Signs - 12hr 06/25/18 06/25/18 06/25/18 01:18 01:33 06:49 Temperature 99.9 F H 98.6 F Pulse Rate 114 H 102 H Respiratory 16 20 16 Rate Blood Pressure 122/66 112/73 O2 Sat by Pulse 97 95 Oximetry - General physical appearance Narrative Exam: Gen: AAOx3. NAD CV: S1, s2+ resp: even and unlabored Abd: soft, NT, ND. RUQ drain with serous output Ext: no c/c/e - Labs 06/24/18 13:35 06/12/18 05:19
--- NOTE | 2018-06-25 12:24 | Discharge Summary ---
Providers - Providers Date of Admission: 06/10/18 17:15 Date of discharge: 06/25/18 Attending physician: ISMAEL DUBOIS 06/13/18 14:01 Consult to Physician [CONS] Stat Comment: Consulting Provider: RABIA JEAN-BAPTISTE Physician Instructions: Reason For Exam: pelvic abscess, ecoli, resistant 06/15/18 19:00 Consult to PICC Line RN [CONS] Routine Reason For Exam: extended course of IV antibiotics for abscess Type Line:: PICC 06/17/18 14:20 Consult to Case Management [CONS] Stat Services Needed at Discharge: Other Notified:: on line csr Additional Physician Instructions: [facility] Diagnosis: ESBL E coli and Enterococcus pelvic abscesses Abx: ertapenem 1 g q day for 2 weeks until 07/08/18 and zyvox 600 mg po q12h for 2 weeks until 07/08/18 Labs: CBC, BMP, CRP every Saturday am, send results to ID office [phone]\ MD Dane 06/25/18 Primary care physician: LESTER MACDONALD Hospitalization Reason for admission: other (abdominopelvic infection) Procedure: other (IV antibiotics and pain managment) Incision: normal Discharge diagnosis: other (Abdominopelvic infection) Hospital course: Patient was admitted for fevers and abdominal pain. She was one week s/p a robotic hysterectomy. She denied any vomiting. Reported she had been experiencing constipation. The patient was admitted for IV antibiotics. CT findings of pelvic/abdominal abscess. She underwent CT guided drainage of the abscesses x 3. Patient continued to spike temps. CT did not indicate any overt bowel perforation. The patient gradually had improvement in symptoms and leukocytosis after extensive IV antibiotic therapy. PICC was placed during the hospitalization. The patient was discharged to receive IV antibiotics for 2 weeks by home health Condition at discharge: Good Disposition: DC-01 TO HOME OR SELFCARE - Discharge Diagnoses (1) Abdominal pain Status: Acute (2) Abscess Status: Acute (3) Tachycardia Status: Acute Plan - Discharge Medications Prescriptions: Linezolid [Zyvox] 600 mg PO BID #28 tablet Oxycodone HCl/Acetaminophen [Percocet 10/325 mg] 1 each PO Q6HR PRN #30 tablet PRN Reason: Pain - Provider Discharge Summary Activity: no sex for 6 weeks, no heavy lifting 4 weeks, no strenuous exercise Diet: routine Instructions: routine Additional instructions: [] Smoking cessation referral if applicable(refer to patient education folder for contact #) [] Refer to [facility] Booklet Call your doctor immediately for: * Fever > 100.5 * Heavy vaginal bleeding ( >1 pad per hour) * Severe persistent headache * Shortness of breath * Reddened, hot, painful area to leg or breast * Drainage or odor from incision. * Keep incision clean and dry at all times and follow doctor's instructions regarding bathing/showering followup on Saturday @ 10am with Dr Yang - Follow up plan
[2018-06-25 12:39] VITALS: BP 119/79
--- NOTE | 2018-06-25 13:21 | Progress Note ---
Assessment and Plan Assessment: 1) Sepsis: fever and leukocytosis better. Etiology most likely intra-abdominal collections. -Urinalysis shows 16 white blood cells but negative leukocyte esterase. -Blood cultures 06/11 and 06/16 both negative 2) Multiple intra-abdominal collections: likely from recent lap-hysterectomy -CT of the abdomen showed multiple fluid collections mainly in the cul-de- sac 6.5 x 6 x 6 cm, bilateral lower quadrants and bilateral gutters, free air -S/P IR drainage on 06/11/2017 which grew Escherichia coli ESBL and Enterococcus Durans -CT 06/15 Suprapubic drain with minimal residual fluid, right lateral peritoneal fluid collection 13x7.5x3 cm and LLQ collection 4.5x1.4 cm -S/P IR drainage on 06/16/2017 which grew ESBL E coli -repeat CT new RLL collection -S/P drain reposition on 06/23 3) S/P robotic hysterectomy on 05/04/18 Plan: -continue meropenem D9 -continue zyvox D3 -contact isolation for ESBL -ok to d/c home on ertapenem 1 g q day for 2 weeks until 07/08/18 and zyvox 600 mg po q12h for 2 weeks until 07/08/18 -ID clinic f/u on 07/03/18 -educated to monitor fever Thank you for your consultation, will follow up with you. Yun Matos MD Infectious Diseases Specialist [facility] M [phone] O [phone] Subjective Date of service: 06/25/18 Principal diagnosis: pelvic abscesses Interval history: Feels better, abd pain better, still 101 Microbiology: Blood cultures: 06/11 neg 06/16 neg 06/17 ngtd 06/21 ngtd Urine cultures: Respiratory cultures: Wound cultures: 06/11 ESBL E coli and E durans 06/16 ESBL E coli 06/23 pending Current Antimicrobials: zyvox 06/23 Meropenem 06/13 Objective - Exam Narrative Exam: General appearance: Alert in NAD, in pain Eyes: anicteric sclerae, moist conjunctivae; no lid-lag; PERRLA HENT: Atraumatic; oropharynx clear Neck: Trachea midline; supple, no thyromegaly or lymphadenopathy Lungs: CTA CV: RRR, no murmurs Abdomen: Soft, diffusely tender, guarding R >L, right sided drain with minimal serous Extremities: No peripheral edema or extremity lymphadenopathy Skin: Normal temperature, turgor and texture; no rash, ulcers or subcutaneous nodules Psych: Appropriate affect, alert and oriented to person, place and time. Neuro: alert and oriented x 3. Moving all extermities Lines: - Constitutional Vitals: Vital Signs Temp Pulse Resp BP Pulse Ox 99.5 F 103 H 18 119/79 97 06/25/18 12:11 06/25/18 12:11 06/25/18 12:11 06/25/18 12:11 06/25/18 12:11 Temperature -Last 24 Hours Temperature 99.5 F Temperature 98.6 F Temperature 99.9 F Temperature 101.0 F Temperature 100.0 F - Labs CBC & Chem 7: 06/24/18 13:35 06/12/18 05:19 Labs: Abnormal lab results 06/24/18 Range/Units 13:35 WBC 12.5 H (4.5-11.0) K/mm3 RBC 3.07 L (3.65-5.03) M/mm3 Hgb 7.9 L (10.1-14.3) gm/dl Hct 24.2 L (30.3-42.9) % MCH 26 L (28-32) pg Plt Count 529 H (140-440) K/mm3 Guthrie % (Auto) 10.5 H (0.0-7.3) % Guthrie # 1.3 H (0.0-0.8) K/mm3 Seg Neutrophils % 72.8 H (40.0-70.0) % Seg Neutrophils # 9.1 H (1.8-7.7) K/mm3
== END 2018-06-25 16:30 | disposition home health service (06) | DRG 862 ==
LOC: 3A 16:15 → UNDOADMIN 16:15 → OB 17:15 → 3A 06-13 16:46
PROVIDERS: ADMIT Obstetrics & Gynecology; ATTEND Obstetrics & Gynecology
PROC: 0W9G30Z Drainage of Peritoneal Cavity with Drainage Device, Percutaneous Approach (ICD-10-PCS; 2018-06-11)
PROC: 0W9G30Z Drainage of Peritoneal Cavity with Drainage Device, Percutaneous Approach (ICD-10-PCS; 2018-06-16)
PROC: 02H633Z Insertion of Infusion Device into Right Atrium, Percutaneous Approach (ICD-10-PCS; principal; 2018-06-18)
PROC: 0W9G30Z Drainage of Peritoneal Cavity with Drainage Device, Percutaneous Approach (ICD-10-PCS; 2018-06-23)
DX: T81.4XXA Infection following a procedure, initial encounter (principal); A41.9 Sepsis, unspecified organism; N17.0 Acute kidney failure with tubular necrosis; K65.1 Peritoneal abscess; B96.20 Unspecified Escherichia coli [E. coli] as the cause of diseases classified elsewhere; B95.2 Enterococcus as the cause of diseases classified elsewhere; Z90.710 Acquired absence of both cervix and uterus; Z90.79 Acquired absence of other genital organ(s)
CPT/HCPCS: 10160; 36415; 71045; 74177; 74178; 77012; 80048; 80053; 80202; 81001; 85007; 85025; 85027; 86140; 87040; 87076; 87086; 87116; 87186; 94760; C1769; J0295; J1580; J1885; J1940; J2020; J2185; J2250; J2270; J3010; J3370; J7040; J7121; Q9967

== ENCOUNTER 2018-07-22 06:16 | Outpatient (CLI) | payer OTHER ==
--- NOTE | 2018-07-22 09:43 | Cat Scan Report ---
CT ABDOMEN PELVIS WITH CONTRAST: HISTORY: Pelvic mass. COMPARISON: 06/23/18. TECHNIQUE: Helical CT in 1.25mm intervals following IV contrast. Sagittal and coronal reconstructions. FINDINGS: Lung bases: A small left pleural effusion has resolved. A small to medium right pleural effusion has decreased by 50%. Heart size is within normal limits. The visualized lung bases are well aerated. Liver: Normal. Biliary system: Normal. Pancreas: Normal. Spleen: Normal. Kidneys/ureters/bladder: Normal. 1 cm simple cyst in the inferior right kidney is noted. Adrenal glands: Normal. Aorta: Normal. Intestines: Normal. Appendix: Normal. Pelvic viscera: A new 2.5 cm right ovarian cyst is identified. A new 3.1 cm left ovarian cyst is identified. Hysterectomy changes are unremarkable. Ascites: None. Adenopathy: None. Musculoskeletal: A percutaneous drain in the right abdomen has been removed since the previous exam. There is near complete resolution of the fluid collection in the right abdomen. Only trace fluid estimated at less than 2-3 cc as suspected. Small collection in the left lower quadrant has resolved since the previous exam. No new collection consistent with abscess is identified on today's exam. The bony structures are normal. IMPRESSION: Complete or near complete resolution of the fluid collection in the right abdomen as described. Resolved smaller collection in the left lower quadrant. No new abscess. New bilateral ovarian cysts as described. Small to medium right pleural effusion remains but has decreased by 50% since the previous exam.
== END 2018-07-22 06:17 | disposition home or self-care (01) ==
LOC: CT 06:16
PROVIDERS: ATTEND Obstetrics & Gynecology
DX: N83.292 Other ovarian cyst, left side (principal); N83.291 Other ovarian cyst, right side; J90 Pleural effusion, not elsewhere classified; E66.9 Obesity, unspecified
CPT/HCPCS: 74177; Q9967

== ENCOUNTER 2018-08-19 14:11 | Outpatient (CLI) | payer OTHER ==
--- NOTE | 2018-08-19 14:54 | XRay Report ---
ROUTINE CHEST, TWO VIEWS: HISTORY: Pleural effusion. Cardiomegaly and pulmonary venous congestion have resolved since 06/18/18. Bilateral pleural effusions have resolved or nearly resolved. Trace right pleural effusion is suspected. No evidence for pneumonia or pneumothorax. The bony structures are intact. IMPRESSION: Near complete resolution of volume overload since 06/18/18.
== END 2018-08-19 14:12 | disposition home or self-care (01) ==
LOC: XRAY 14:11
PROVIDERS: ATTEND Internal Medicine Infectious Disease
DX: J90 Pleural effusion, not elsewhere classified (principal); R18.8 Other ascites; R06.09 Other forms of dyspnea; E66.9 Obesity, unspecified
CPT/HCPCS: 71046

== ENCOUNTER 2019-09-18 14:54 | Outpatient (CLI) | payer OTHER | END 2019-09-18 14:55 | disposition home or self-care (01) | LOC: LABHHL 14:54 | PROVIDERS: ATTEND Surgery | DX: N61.0 Mastitis without abscess (principal) | CPT/HCPCS: 88112 ==

== ENCOUNTER 2019-09-29 08:31 | Outpatient (CLI) | payer OTHER ==
--- NOTE | 2019-09-29 09:28 | Mammography Report ---
RIGHT DIGITAL DIAGNOSTIC MAMMOGRAM CLINICAL: For clip placement after ultrasound biopsy. COMPARISON: APRIL 08/03/2019 mammogram FINDINGS: A new biopsy clip at 11:00 approximately 8 cm from the nipple on the lateral view is identi fied within an oval circumscribed 1 cm mass. IMPRESSION: Concordant clip deployment. BI-RADS Category 4: Suspicious Signer Name: Josue Vega MD Signed: 09/29/2019 9:23 AM Workstation Name: [id number]
== END 2019-09-29 08:32 | disposition home or self-care (01) ==
LOC: SPVWC 08:31
PROVIDERS: ATTEND Surgery
DX: Z04.89 Encounter for examination and observation for other specified reasons (principal); Z98.890 Other specified postprocedural states; Z96.89 Presence of other specified functional implants; N64.89 Other specified disorders of breast

== ENCOUNTER 2020-05-17 10:36 | Outpatient (CLI) | payer OTHER ==
--- NOTE | 2020-05-17 12:16 | Ultrasound Report ---
EXAMINATION: Right Complete Breast Ultrasound, 05/17/2020 INDICATION: Rt breast mass COMPARISON: Right breast mammogram 09/29/19 and right breast ultrasound 09/02/19. FINDINGS: Complete sonographic evaluation of all 4 quadrants and retroareolar region was performed. The previously described complex cyst at the 12:00 position 5 to 6 cm from the nipple is significantl y smaller. There is a 1.4 cm irregular shadowing mass with angular margins at the 1:00 position 5 cm from the ni pple which was not seen previously. There is a 5.9 mm ovoid hypoechoic nodule with ill-defined margin s at the 11:00 position 3 cm from the nipple which demonstrates posterior shadowing. No internal vasc ularity is seen on Doppler exam. There is a lymph node in the right axilla with localized eccentric cortical thickening the lymph node measures 6 mm short axis. There are several other additional benign-appearing simple and complicated cysts scattered throughout the right breast. IMPRESSION: 1. 1.4 cm irregular shadowing mass at the 1:00 position is suspicious for malignancy. Biopsy is recom mended. 2. 5.9 mm shadowing solid nodule at the 11:00 position is also suspicious and biopsy is recommended. 3. Small abnormal appearing lymph node in the right axilla. Biopsy is recommended. Follow up recommendation: Surgical consult BI-RADS Category 4: Suspicious for Malignancy. Signer Name: Hipolito Ledesma MD Signed: 05/17/2020 12:11 PM Workstation Name: [id number]
== END 2020-05-17 10:37 | disposition home or self-care (01) ==
LOC: SPVWC 10:36
PROVIDERS: ATTEND Surgery
DX: N63.12 Unspecified lump in the right breast, upper inner quadrant (principal); N63.11 Unspecified lump in the right breast, upper outer quadrant

== ENCOUNTER 2020-05-25 13:11 | Outpatient (CLI) | payer OTHER ==
--- NOTE | 2020-05-25 15:02 | Mammography Report ---
DIGITAL DIAGNOSTIC MAMMOGRAM WITH CAD, -- 05/25/2020 INDICATION: 2 suspicious-appearing nodules in the right breast and a suspicious-appearing right axill queta lymph node, here for biopsy, -Post clip Rt TECHNIQUE: Digital right mammographic imaging was performed. This examination was interpreted with the benefit of Computer-aided Detection analysis. COMPARISON: Mammographic images from 09/29/2019 and 08/03/2019 FINDINGS: Breast Density: There are scattered areas of fibroglandular density. Biopsy clips are well positioned within the 2 nodules within the right breast and also in the right a xillary lymph node. IMPRESSION: Follow up recommendation: Follow-up with referring physician once pathology returns. Post biopsy imaging. A "normal" or negative report should not discourage follow up or biopsy of a clinically significant f inding. A written summary of these findings will be mailed to the patient. The patient will be entered into a mammography reporting system which will generate a reminder letter for the patient's next appointmen t at the appropriate interval. According to the [employer], yearly mammograms are recommended starting at age 40 and continuing as long as a woman is in good health. Breast MRI is recommended for women with an titus roximately 20-25% or greater lifetime risk of breast cancer, including women with a strong family his tory of breast or ovarian cancer and women who have been treated for Hodgkin's disease. Signer Name: Jason Epstein MD Signed: 05/25/2020 2:58 PM Workstation Name: [id number]
--- NOTE | 2020-05-25 15:10 | Ultrasound Report ---
Ultrasound-guided percutaneous biopsy of 2 separate right breast nodules and a right axillary lymph n ode HISTORY: ABNORMAL MAMMOGRAM. Patient with 2 separate breast nodules and a right axillary lymph node presents for biopsy. COMPARISON: Right breast ultrasound from 05/17/2020 PROCEDURE: The risks (including but not limited to bleeding and infection) and benefits were explain ed to the patient and informed consent was obtained. A time out procedure was performed. The proced ure site was prepped and draped in the usual sterile fashion and lidocaine was used for local anesthe lake. 3 separate sites were biopsied under direct ultrasound guidance. First, a 14-gauge biopsy needle was advanced to the peripheral margin of the right breast nodule loca david at the 1:00 position from a lateral approach. A total of 2 separate biopsies were performed with samples placed directly in formalin. A postsurgical clip was then placed directly within the nodule. Next, a 14-gauge biopsy needle was advanced to the peripheral margin of the right breast nodule locat ed at the 11:00 position also from a lateral approach. A total of 2 separate biopsies were performed with samples placed directly in formalin. A postsurgical clip was then placed directly within the nod ule. Finally, a 18-gauge biopsy needle was advanced to the peripheral margin of the right axillary lymph n ode from a lateral approach. A total of 2 separate biopsies were performed with samples placed direct ly in formalin. A postsurgical clip was then placed directly within the nodule. The patient tolerated the procedure well with no complications. IMPRESSION: 1. Technically successful biopsies of 2 separate right breast nodules and a right axillary lymph node . An addendum will be made at a later date once pathology results are completed. Signer Name: Jason Epstein MD Signed: 05/25/2020 3:05 PM Workstation Name: [id number]
== END 2020-05-25 13:12 | disposition home or self-care (01) ==
LOC: SPVWC 13:11
PROVIDERS: ATTEND Surgery
DX: N63.11 Unspecified lump in the right breast, upper outer quadrant (principal); N63.12 Unspecified lump in the right breast, upper inner quadrant; I89.8 Other specified noninfective disorders of lymphatic vessels and lymph nodes; N61.0 Mastitis without abscess; N64.89 Other specified disorders of breast
CPT/HCPCS: 38505; 76942; 88305

== ENCOUNTER 2020-08-09 13:33 | Outpatient (CLI) | payer OTHER ==
--- NOTE | 2020-08-09 15:37 | Mammography Report ---
DIGITAL SCREENING MAMMOGRAM WITH CAD, 08/09/2020 INDICATION: Routine screening mammography. TECHNIQUE: Digital bilateral 2D mammography was obtained in the craniocaudal and mediolateral obliq ue projections. This examination was interpreted with the benefit of Computer-Aided Detection analysi s. COMPARISON: Right breast mammogram 05/25/20 and bilateral mammography 08/03/19. FINDINGS: Breast Density: There are scattered areas of fibroglandular density. There is no evidence of dominant mass, suspicious calcifications or architectural distortion in eithe r breast. Benign-appearing nodularity in the right breast is stable. Multiple right biopsy clips are again noted. No new abnormality is seen. IMPRESSION: No mammographic evidence of malignancy or significant change. Follow up recommendation: Routine yearly BI-RADS Category 2: Benign. A "normal" or negative report should not discourage follow up or biopsy of a clinically significant f inding. A written summary of these findings will be mailed to the patient. The patient will be entered into a mammography reporting system which will generate a reminder letter for the patient's next appointmen t at the appropriate interval. The [employer] recommends yearly mammograms starting at age 40 and continuing as l dannie as a woman is in good health. Breast MRI is recommended for women with an approximate 20-25% or greater lifetime risk of breast cancer, including women with a strong family history of breast or ova joseluis cancer or who have been treated for Hodgkin's disease. Signer Name: Hipolito Ledesma MD Signed: 08/09/2020 3:29 PM Workstation Name: [id number] [id number]
--- NOTE | 2020-08-10 08:51 | Ultrasound Report ---
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 This is a second look ultrasound to identify a correlate for biopsy for two areas of enhancement in the deep central aspect of the right breast. COMPARISON: Breast MRI, 07/20/2020. Ultrasound-guided biopsy, 05/25/2020. Diagnostic mammogram, 09/29/2019 FINDINGS: Complete sonographic evaluation of all 4 quadrants and retroareolar region was performed. Right breast: Sonographic evaluation of the right breast demonstrates no evidence of suspicious solid mass or shadowing. A few scattered cysts are incidentally noted. There is no definite sonographic co rrelate identified to correspond to the areas of enhancement in the deep posterior central breast see n on the MRI. Left breast: Sonographic evaluation of the left breast demonstrates no evidence of suspicious solid m ass or shadowing. IMPRESSION: Follow up recommendation: Clinical exam BI-RADS Category 2: Benign. No sonographic abnormality of either breast. Specifically, no sonographi c abnormality is seen to correspond to the areas of enhancement in the deep posterior right breast. F indings on MRI remain moderately suspicious. An MRI guided biopsy could be performed if it would alte r surgical management. A normal or "negative" report should not preclude biopsy or follow-up of a clinically suspicious find ing. Signer Name: Lindy Nava MD Signed: 08/10/2020 8:46 AM Workstation Name: [id number]
== END 2020-08-09 13:34 | disposition home or self-care (01) ==
LOC: SPVWC 13:33
PROVIDERS: ATTEND Surgery
DX: Z12.31 Encounter for screening mammogram for malignant neoplasm of breast (principal); N63.10 Unspecified lump in the right breast, unspecified quadrant
CPT/HCPCS: 77067

== ENCOUNTER 2020-08-31 08:59 | Outpatient (CLI) | payer OTHER ==
--- NOTE | 2020-08-31 12:31 | Mammography Report ---
DIGITAL DIAGNOSTIC MAMMOGRAM WITH CAD CONVENTIONAL, 08/31/2020 CLINICAL INFORMATION / INDICATION: Post MR guided biopsy TECHNIQUE: Digital right mammographic imaging was performed. This examination was interpreted with the benefit of Computer-aided Detection analysis. COMPARISON: MR breast 07/20/2020, right mammogram 08/09/2020 FINDINGS: Breast Density: There are scattered areas of fibroglandular density. No dominant mass, suspicious calcifications or architectural distortion in the right breast. New biopsy changes are seen in the posterior upper inner right breast at the site of the MR abnormali ty. IMPRESSION: Satisfactory clip placement Follow up recommendation: Per biopsy results Post biopsy imaging. A "normal" or negative report should not discourage follow up or biopsy of a clinically significant f inding. A written summary of these findings will be mailed to the patient. The patient will be entered into a mammography reporting system which will generate a reminder letter for the patient's next appointmen t at the appropriate interval. According to the [employer], yearly mammograms are recommended starting at age 40 and continuing as long as a woman is in good health. Breast MRI is recommended for women with an titus roximately 20-25% or greater lifetime risk of breast cancer, including women with a strong family his tory of breast or ovarian cancer and women who have been treated for Hodgkin's disease. Signer Name: Mukesh Albarado MD Signed: 08/31/2020 12:27 PM Workstation Name: [id number]
--- NOTE | 2020-08-31 13:28 | Magnetic Resonance Report ---
MR GUIDED VACUUM-ASSISTED BIOPSY OF THE RIGHT BREAST INDICATION: Abnormal enhancement on recent MR in the right breast COMPARISON: MR breast 07/20/2020 CONSENT: Procedure was discussed at length in advance with the patient including possible risks and b enefits. The stability is of bleeding, infection, and muscular penetration due to the posterior locat ion were discussed. Post care issues were discussed. Opportunity for questions was given. Patient is not on anticoagulant therapy and does not report pertinent allergies. CONTRAST: 17 cc MultiHance IV PROCEDURE: Timeout was performed. The far posterior medial upper small areas of enhancement seen on r ecent MR were targeted on the postcontrast MR images. Using local anesthesia and aseptic technique, a EasilyDo 8 gauge biopsy needle was placed. Confirmation images initially showed location more post erior than desired with slight penetration of muscle fascia of a small projection of the pectoralis m uscle. Needle was retargeted and additional views were obtained showing good needle orientation. Base d on this series, the needle was advanced slightly and multiple core biopsies were performed with spe cimens sent for pathologic analysis. Postbiopsy images showed good cavity placement sampling the targ eted area well. No evidence of hemorrhage is seen. Metallic clip was placed at the site. Device was w ithdrawn and site was secured. Patient was then escorted for post biopsy mammogram. Patient tolerated the procedure well. COMPLICATIONS: No immediate complications occurred. IMPRESSION: Successful MR guided right breast biopsy Signer Name: Mukesh Albarado MD Signed: 08/31/2020 1:23 PM Workstation Name: [id number]
== END 2020-08-31 09:00 | disposition home or self-care (01) ==
LOC: SPVIMAG 08:59
PROVIDERS: ATTEND Surgery
DX: R92.8 Other abnormal and inconclusive findings on diagnostic imaging of breast (principal); N64.89 Other specified disorders of breast; N64.1 Fat necrosis of breast; G43.909 Migraine, unspecified, not intractable, without status migrainosus; E66.9 Obesity, unspecified; F32.9 Major depressive disorder, single episode, unspecified; Z79.899 Other long term (current) drug therapy; Z72.89 Other problems related to lifestyle; Z98.890 Other specified postprocedural states; Z86.2 Personal history of diseases of the blood and blood-forming organs and certain disorders involving the immune mechanism
CPT/HCPCS: 19085; 77065; 88305; 88341; 88342; A4648; A9577

== ENCOUNTER 2021-03-21 10:59 | Outpatient (CLI) | payer OTHER ==
--- NOTE | 2021-03-21 12:28 | Magnetic Resonance Report ---
MRI BREAST BILATERAL WITH AND WITHOUT CONTRAST, 03/21/2021 CLINICAL INFORMATION / INDICATION: FIBROSCLEROSIS OF LEFT AND RIGHT BREASTS. TECHNIQUE: Axial T1 and T2-weighted fat sat images were obtained precontrast. Gadolinium-based contra st was injected intravenously and serial axial T1 weighted images with fat saturation were obtained. 3-D MIP projections, kinetic analysis, and subtraction imaging were utilized to evaluate. A dedicated 8-channel breast coil was used for image acquisition. COMPARISON: MRI guided right breast biopsy performed on 08/31/2020. MRI of the breasts performed on . FINDINGS: BREAST DENSITY: Scattered areas of fibroglandular density. BACKGROUND ENHANCEMENT: Moderate background enhancement within both breasts. RIGHT BREAST: No dominant mass or suspicious area of enhancement in the right breast. Expected biopsy changes are seen at multiple sites in the right breast. LEFT BREAST: No dominant mass or suspicious area of enhancement in the left breast. AXILLAE: No pathologically enlarged axillary lymph nodes. ADDITIONAL FINDINGS: Limited imaging of the thorax and upper abdomen demonstrates no focal abnormalit y. IMPRESSION: 1. No MRI evidence of malignancy. Continued annual screening mammography is recommended with further magnetic resonance imaging of the breasts to be performed as clinically indicated. Follow up recommendation: Routine yearly BI-RADS Category 2: Benign. Signer Name: Paul Rubio MD Signed: 03/21/2021 12:24 PM Workstation Name: [id number]
== END 2021-03-21 11:00 | disposition home or self-care (01) ==
LOC: SPVIMAG 10:59
PROVIDERS: ATTEND Surgery
DX: N60.32 Fibrosclerosis of left breast (principal); N60.31 Fibrosclerosis of right breast
CPT/HCPCS: A9575; C8908; 77049